=== PATIENT | female | born 1980 | race Caucasian/White ===

== ENCOUNTER → 2017-08-19 13:30 | Outpatient (CLI) | payer MEDICAID, SELFPAY ==
[2017-08-19 18:45] LABS: Chlamydia Trachomatis by PCR Negative (Negative); Neisserai gonorrhoeae by PCR Negative (Negative); Probe Check PASS; Sample Adequacy Control PASS; Specimen Processing Control PASS
[2017-08-23 15:37] LABS: HPV Reflexed? NOT INDICATED
== END ==
PROVIDERS: Visit Provider Obstetrics & Gynecology
DX: Z32.01 Encounter for pregnancy test, result positive (principal); Z11.3 Encounter for screening for infections with a predominantly sexual mode of transmission; Z12.4 Encounter for screening for malignant neoplasm of cervix
CPT/HCPCS: 87491; 87591; 88175; G0145

== ENCOUNTER → 2017-09-07 11:43 | Outpatient (CLI) | payer MEDICAID, SELFPAY ==
[2017-09-07 13:02] LABS: Color, Urine Yellow (Yellow); Glucose, Dipstick 1000 mg/dl (Normal); Ketone-Dipstick 5 mg/dl (Negative); Leukocyte Esterase-Dipstick Negative /ul (Negative); Nitrite-Dipstick Negative (Negative); Occult Blood-Urine Negative /ul (Negative); Protein-Dipstick Negative (Negative); Urine Bilirubin Dipstick Negative (Negative); Urine Clarity Clear (Clear); Urine Urobilinogen Normal (Normal)
[2017-09-07 13:13] LABS: Absolute Lymphocyte Count 1.62 X10^3/ul (0.83-4.51); Absolute Neutrophil Count 6.6 X10^3/uL (2.0-7.7); Basophil# 0.02 X10^3/uL; Basophil% 0.2 % (0-1); Eosinophil# 0.16 X10^3/uL; Eosinophils% 1.8 % (0-5); Hematocrit 36.7 % (37-47); Hemoglobin 11.8 g/dl (12.0-15.0); Lymphocyte # 1.62 X10^3/ul (4.0); Lymphocyte % 18.1 % (19-41); Mean Corp Hgb Conc 32.2 g/gl (32-36); Mean Corpuscular Hgb 26.8 pg (27.0-32.0); Mean Corpuscular Volume 83.2 fL (81-99); Mean Platelet Vol. 10.3 fl (6.2-12.0); Monocyte% 6.7 % (0-10); Neutrophil # 6.55 X10^3/uL (2.7-7.7); Neutrophil % 73.1 % (47-70); Platelet Count 305 K/mm3 (150-450); RBC Distribution Width CV 21.3 % (11.6-14.6); RBC Distribution Width SD 65.2 fl (35.1-43.9); Red Blood Count 4.41 M/mm3 (4.2-5.4)
[2017-09-07 13:15] LABS: Differential Indicated SCAN CRITERIA MET; POSITIVE COUNT NO; POSITIVE DIFFERENTIAL NO; POSITIVE MORPHOLOGY YES
[2017-09-07 13:16] LABS: Amphetamine Urine VISTA NEGATIVE (<1000 ng/mL); Barbiturate Urine VISTA NEGATIVE (< 200 ng/mL); Benzodiazepine Urine VISTA NEGATIVE (< 200 ng/mL); Cocaine Urine VISTA NEGATIVE (< 300 ng/mL); Ecstacy Urine VISTA NEGATIVE (< 500 ng/mL); Methadone Urine VISTA NEGATIVE (< 300 ng/mL); PCP Urine VISTA NEGATIVE (< 25 ng/mL); THC Urine VISTA NEGATIVE (< 50 ng/mL); Vista UDS pH Range 6
[2017-09-07 13:23] LABS: COTININE Drug Screen Positive (<200 ng/mL)
[2017-09-07 13:30] LABS: Thyroid Stim Hormone (TSH) 2.35 uIU/mL (0.358-3.74)
[2017-09-07 13:38] LABS: Anisocytosis 1+
[2017-09-07 14:28] LABS: HIV - WCH Non-Reactive (Nonreactive); Rubella IgG 59.7 IU/mL
[2017-09-08 12:55] LABS: HEPATITIS B SURFACE AG Negative (Negative); Hep C Antibodies <0.1 s/co ratio (0.0-0.9)
[2017-09-09 01:09] LABS: Prenatal RPR NONREACTIVE (NONREACTIVE)
== END ==
PROVIDERS: Visit Provider Obstetrics & Gynecology
DX: Z34.81 Encounter for supervision of other normal pregnancy, first trimester (principal)
CPT/HCPCS: 36415; 80307; 81002; 84443; 85025; 86703; 86762; 86803; 87340

== ENCOUNTER 2017-09-10 11:07 | Emergency (ER) | payer MEDICAID, SELFPAY ==
[2017-09-10 11:08] VITALS: BP 138/75; PULSE 99; RESP 16; TEMP 36.7; O2SAT 98; BMI 28.5
--- NOTE | 2017-09-10 11:43 | US_ITS ---
STUDY: FIRST TRIMESTER OBSTETRICAL ULTRASOUND REASON FOR EXAM: Female, 37 years old. Vaginal bleeding. LMP: 06/12/2017 TECHNIQUE: Transvaginal PRIOR ULTRASOUND: None. FINDINGS: There is visualization of a single gestational sac in a normal intrauterine position. The mean sac diameter (MSD) measures 6.3 cm. The gestational sac shape is within normal limits. There is no demonstrated yolk sac. There is visualization of the placenta. Fundal. There is visualization of a live embryo. The crown-rump length (CRL) measures 7 cm, indicating an estimated gestational age (EGA) of 13 weeks, 2 days. There is demonstrated cardiac activity with a heart rate of 157 bpm. The estimated gestation age (EGA) by LMP is 12 weeks, 6 days. The estimated date of delivery (CEZAR) by LMP is 03/19/2018. The estimated gestation age (EGA) by US is 13 weeks, 2 days. The estimated date of delivery (CEZAR) by US is 03/16/2018. The uterus measures 13.0 x 9.3 x 7.7 cm. There is no demonstrated uterine fibroid. The cervix is closed. Cervix measures 3.8 cm. Neither ovary is definitely seen. There is no fluid in the cul de sac. US/Transvaginal w/Preg US IMPRESSION: Single live intrauterine gestation with ultrasound EGA of 13 weeks 2 days. Electronically Signed: Scott Lyons MD at 13:15 EST , Service support ,
--- NOTE | 2017-09-10 11:58 | ED.VISSUMM ---
- ER Visit Summary Date of Service: 09/10/17 Chief Complaint: [] Vaginal bleeding weeks about 12 weeks History of Present Illness: The patient is a 37 F [] G 11 P7 AB 3 reports she has had vaginal bleeding on and off for 2 weeks she seen her [employer] BUSINESS ANALYST's multiple times, she last saw them 1 week ago when she was found to be 11 weeks had vaginal spotting she did not have placenta previa. She persists in having vaginal bleeding she had what she felt was more vaginal bleeding today and she came in. She also complains of cramps in her lumbar back. Normal urinary and bowel habits no fever no cough no chest pain no abdominal pain otherwise except for the cramps related to the bleeding Physical Examination: [] In no distress her vital signs are within normal range head neck chest unremarkable the abdomen is soft there is no rebound guarding organomegaly there is no pain palpation of her back midline flanks are negative for pain I discussed pelvic exam with her she declined that Test Results: [] Emergency Department Course and Treatment: [] This time given all the above screening labs are obtained pelvic ultrasound His labs are all unremarkable, her ultrasound shows single live 13 week IUP nothing else that was acute see those reports, her AB Rh was canceled by lab will confirm from her Rh status instructed her on the concept of threatened AB rest and follow-up with her [employer] BUSINESS ANALYST return for change in symptoms Treatment Plan: [] Disposition: [] Stable home Impression: [] 13 week live IUP threatened AB vaginal bleeding This note was generated with [employer] dictation software. It may contain incorrect words, spelling, and punctuation that were not noted in review of the chart prior to signing ED Disposition - Plan for ED Patient: Chief Complaint: Vag Bld, Preg Referrals: Care Physician,No Primary [Primary Care Provider] -
[2017-09-10 12:01] LABS: Bacteria 0 SEEN /hpf (None Seen); Mucous, Urine 0 SEEN /hpf (<or=2+); Red Blood Cells-Urine 0 SEEN /hpf (0-5)
[2017-09-10 12:08] LABS: Color, Urine Yellow (Yellow); Glucose, Dipstick Normal (Normal); Ketone-Dipstick Negative (Negative); Leukocyte Esterase-Dipstick 25 /ul (Negative); Nitrite-Dipstick Negative (Negative); Occult Blood-Urine 10 /ul (Negative); Protein-Dipstick Negative (Negative); Specific Gravity, Urine 1.015 (1.002-1.030); Urine Bilirubin Dipstick Negative (Negative); Urine Clarity Sl. Cloudy (Clear); Urine Urobilinogen Normal (Normal)
[2017-09-10] MEDS: 0.9% Normal Saline 1,000 ML 1000 ML IV (12:11)
[2017-09-10 12:14] LABS: Amorphous Sediment 2+; Squamous Epithelial Cells - UA 0-5 SEEN /hpf (5-10); White Blood Cells 0-5 SEEN /hpf (0-5)
[2017-09-10 12:19] LABS: Absolute Lymphocyte Count 1.82 X10^3/ul (0.83-4.51); Absolute Neutrophil Count 7.5 X10^3/uL (2.0-7.7); Basophil# 0.03 X10^3/uL; Basophil% 0.3 % (0-1); Eosinophil# 0.15 X10^3/uL; Eosinophils% 1.5 % (0-5); Hematocrit 37.1 % (37-47); Hemoglobin 12.4 g/dl (12.0-15.0); Lymphocyte # 1.82 X10^3/ul (4.0); Lymphocyte % 17.8 % (19-41); Mean Corp Hgb Conc 33.4 g/gl (32-36); Mean Corpuscular Hgb 27.9 pg (27.0-32.0); Mean Corpuscular Volume 83.4 fL (81-99); Mean Platelet Vol. 10.1 fl (6.2-12.0); Monocyte# 0.67 X10^3/uL; Monocyte% 6.6 % (0-10); Neutrophil # 7.51 X10^3/uL (2.7-7.7); Neutrophil % 73.6 % (47-70); Platelet Count 300 K/mm3 (150-450); RBC Distribution Width CV 21.4 % (11.6-14.6); Red Blood Count 4.45 M/mm3 (4.2-5.4); White Blood Count 10.2 K/mm3 (4.4-11.0)
[2017-09-10 12:31] LABS: POSITIVE COUNT NO; POSITIVE DIFFERENTIAL NO
[2017-09-10 12:32] LABS: Anisocytosis 2+; Differential Comment SCANNED; Differential Indicated SCAN CRITERIA MET; Macrocytosis 1+; Microcytosis 1+; POSITIVE MORPHOLOGY YES
[2017-09-10 13:22] LABS: hCG Titer Quant., Serum 58283 mIU/mL (<9 non-preg)
--- NOTE | 2017-09-10 13:46 | ED.DEP ---
ED Disposition - Plan for ED Patient: Chief Complaint: Vag Bld, Preg Instructions: ED Miscarriage Poss Referrals: Care Physician,No Primary [Primary Care Provider] - Additional Instructions: Up with your PERSONAL CARE SERVICE PROVIDER a few days return for change in symptoms
[2017-09-10 14:09] VITALS: BP 130/75; PULSE 72; RESP 16; O2SAT 98
== END 2017-09-10 14:09 | disposition home or self-care (01) ==
PROVIDERS: Emergency Provider Emergency Medicine
DX: O20.0 Threatened abortion (principal); Z3A.13 13 weeks gestation of pregnancy
CPT/HCPCS: 76817; 81001; 84702; 85025; 99285; J7030; A4216

== ENCOUNTER → 2017-10-07 11:23 | Outpatient (CLI) | payer MEDICAID, SELFPAY | PROVIDERS: Visit Provider Obstetrics & Gynecology | DX: Z34.82 Encounter for supervision of other normal pregnancy, second trimester (principal) | CPT/HCPCS: 36415 ==

== ENCOUNTER → 2017-12-29 10:47 | Outpatient (CLI) | payer MEDICAID, SELFPAY ==
[2017-12-29 12:22] LABS: Hematocrit 32.6 % (37-47); Hemoglobin 10.3 g/dl (12.0-15.0); Mean Corp Hgb Conc 31.6 g/gl (32-36); Mean Corpuscular Volume 85.6 fL (81-99); Platelet Count 326 K/mm3 (150-450); RBC Distribution Width CV 15.7 % (11.6-14.6); RBC Distribution Width SD 48.8 fl (35.1-43.9); Red Blood Count 3.81 M/mm3 (4.2-5.4); White Blood Count 9.4 K/mm3 (4.4-11.0)
[2017-12-29 12:23] LABS: Scan Indicated on CBC? Y/N NO
[2017-12-29 12:37] LABS: Glucose Challenge Gest 1H 50g 154 mg/dL (70-140)
== END ==
PROVIDERS: Visit Provider Obstetrics & Gynecology
DX: Z34.83 Encounter for supervision of other normal pregnancy, third trimester (principal)
CPT/HCPCS: 36415; 82950; 85027

== ENCOUNTER 2018-02-24 22:35 | Inpatient (IN) | payer MEDICAID, SELFPAY ==
[2018-02-24 22:02] VITALS: BMI 33.2
[2018-02-24 22:35] LABS: ROM Internal Control Test YES-OK TO RESULT pt. (Internal QC); ROM Patient Test POSITIVE (Negative)
[2018-02-24] MEDS: Lactated Ringers 1,000 ML 50 ML IV (23:00)
[2018-02-24 23:08] LABS: Group B Strep DNA By PCR Negative (Negative); Internal Control PASS; Probe Check PASS; Specimen Processing Control PASS
[2018-02-24] MEDS: Betamethasone/Betamethasone 30 MG/5 ML Vial 12 MG IM (23:10)
[2018-02-24 23:31] LABS: Hematocrit 29.4 % (37-47); Hemoglobin 9.3 g/dl (12.0-15.0); Mean Corp Hgb Conc 31.6 g/gl (32-36); Mean Corpuscular Hgb 25.1 pg (27.0-32.0); Mean Corpuscular Volume 79.5 fL (81-99); Mean Platelet Vol. 9.6 fl (6.2-12.0); Platelet Count 267 K/mm3 (150-450); RBC Distribution Width CV 16.8 % (11.6-14.6); White Blood Count 10.7 K/mm3 (4.4-11.0)
[2018-02-24 23:37] LABS: Scan Indicated on CBC? Y/N NO
[2018-02-25] MEDS: BENZOCAINE/MENTHOL 1 LOZENGE MUCOUS MEM (01:31)
[2018-02-25] MEDS: Oxytocin 30 units/NS 500 ml 30 UNITS/500 ML IV.SOLN 334 UNITS IV (07:30)
[2018-02-25] MEDS: Oxytocin 30 units/NS 500 ml 30 UNITS/500 ML IV.SOLN 167 UNITS IV (08:00)
[2018-02-25] MEDS: Acetaminophen 325 MG Tablet PO (08:26)
--- NOTE | 2018-02-25 09:08 | PCM.OB.VAG ---
Vaginal Delivery Maternal Presentation: Active Labor, Spontaneous Rupture of Membranes Amniotic Membrane Rupture Type: Spontaneous at home Amniotic Fluid Description: Clear Final CEZAR: 03/19/18 Final CEZAR Source: US <20 weeks Gestational age: 36 Weeks and 6 Days Date of Procedure: 02/25/18 Pre-Operative Diagnosis: premature rupture of membranes Post-Operative Diagnosis: premature rupture membranes Surgery/ Procedure Performed: Spontaneous Vaginal Delivery Type of Anesthesia: None Description of Procedure: Spontaneous vaginal delivery of a viable female infant with Apgars of 8/9 from an occiput anterior presentation with clear amniotic fluid and normal three-vessel placenta. No lacerations or episiotomy. Sponge counts okay. Delivery physician: Elijah Sheridan MD. Presentation: Vertex Placental Delivery Description: Spontaneous Placenta Disposition: [facility] Cord Vessel Description: 3 Vessels Cord Gases drawn per routine: ABG Cord Entanglement: None Estimated Blood Loss: 250 cc A gender: Female (1 minute): 8 (5 minute): 9 Episiotomy Description: None Laceration: None Medications given after delivery: IV Pitocin Complications: None
--- NOTE | 2018-02-25 09:11 | PCM.DCVAG ---
Discharge Diet: No Restrictions Discharge Activity: May Shower, May Take a Tub Bath May resume sexual activity in: 4-6 weeks Additional Activity Instructions:: Nothing in the vagina for 4-6 weeks. You may return to work/school in 6 weeks. Call your doctor if you observe: Fever of 101 or Higher, Inability to urinate, Inability to have a bowel movement, Using more than one pad per hour Additional Instructions: If you experience any of the following, contact your healthcare provider. Bleeding that soaks a pad every hour for 2 hours Unrelieved incision or abdominal pain Swelling, redness, discharge or bleeding from your incision or episiotomy site Your incision begins to separate Problems urinating (including inability to urinate or burning while urinating). Visual changes Severe headache Flu-like symptoms Pain or redness in one of both of your breasts Pain, warmth, tenderness or swelling in your legs, especially the calf area Frequent nausea and vomiting Symptoms of depression or anxiety If you experience any of the following, call 911 or go to the nearest Emergency Room. Chest pain Problems breathing Seizure activity Partial or complete paralysis of a body part, slurred speech, weakness or drooping of the face, or a sudden inability to walk or hold your balance Allergies/Adverse Reactions: Allergies azithromycin [From Zithromax] Allergy (Verified 02/24/18 22:05) Rash Medications to take at Discharge Vits [Prenatabs FA ] 1 tablet PO DAILY #30 tablet 01/11/14 Please Follow Up With: Elijah Sheridan MD - [phone] When: Call to make an appointment with your doctor in 6 weeks. Primary Care Physician: Care Physician,No Primary [Primary Care Provider] - Test Results: Test results from this visit will be discussed in further detail at your follow-up appointment, if applicable.
[2018-02-25 12:00] VITALS: BP 120/70; PULSE 97; RESP 20; TEMP 36.4
[2018-02-25 16:00] VITALS: BP 131/72; PULSE 86; RESP 18; TEMP 36.6
[2018-02-25 19:50] VITALS: BP 120/62; PULSE 87; RESP 16; TEMP 36.8
[2018-02-26 00:30] VITALS: BP 132/79; PULSE 75; RESP 16; TEMP 36.6
[2018-02-26 04:00] VITALS: BP 133/76; PULSE 70; RESP 16; TEMP 36.6
[2018-02-26 07:50] VITALS: BP 129/79; PULSE 77; RESP 18; TEMP 36.6
[2018-02-26] MEDS: Senna/Docusate Sodium 1 Tablet PO (10:10)
--- NOTE | 2018-02-26 11:08 | PCM.PN.OB ---
Subjective: Patient without complaints. Breast-feeding going well. Minimal vaginal bleeding. Heading outside to smoke. - Physical Exam Vital Signs Temp Pulse Resp BP 97.8 F 77 18 129/79 H 02/26/18 07:50 02/26/18 07:50 02/26/18 07:50 02/26/18 07:50 Oxygen Delivery Method Room Air Weight: 181 lb 9.6 oz Body Mass Index (BMI) 33.2 Intake and Output for Last 24 Hours 02/24/18 02/25/18 02/26/18 23:59 23:59 23:59 Output Total 600 / 600 Balance -600 / -600 Medical Necessity - Tobacco Use Smoking Status: Heavy Smoker (>10/day) Assessment/Plan Doing well day #1. Continuing present care. Considering going home this evening if baby is able to go.
[2018-02-26 14:00] VITALS: BP 116/71; PULSE 85; RESP 18; TEMP 36.9
[2018-02-26 19:40] VITALS: BP 126/61; PULSE 89; RESP 18; TEMP 36.7; O2SAT 96
[2018-02-27 03:00] VITALS: BP 115/64; PULSE 81; RESP 18; TEMP 36.4; O2SAT 96
--- NOTE | 2018-02-27 07:42 | PCM.PN.OB ---
Subjective: Patient without complaints. Doing well. Baby still under bili lights but will probably go home later today. - Physical Exam Vital Signs Temp Pulse Resp BP Pulse Ox 97.6 F L 81 18 115/64 96 02/27/18 03:00 02/27/18 03:00 02/27/18 03:00 02/27/18 03:00 02/27/18 03:00 Oxygen Delivery Method Room Air Weight: 181 lb 9.6 oz Body Mass Index (BMI) 33.2 Intake and Output for Last 24 Hours 02/25/18 02/26/18 02/27/18 23:59 23:59 23:59 Output Total 600 / 600 Balance -600 / -600 Microbiology Past 72 Hours 02/24/18 Unknown Group B Streptococcus Culture - Preliminary Genital vaginal Group B Beta Streptococcus is not isolated. Medical Necessity - Tobacco Use Smoking Status: Heavy Smoker (>10/day) Assessment/Plan Doing well day #2. Will release to home or to hotel later today. Routine instructions given.
[2018-02-27 08:00] VITALS: BP 132/79; PULSE 72; RESP 18; TEMP 36.6; O2SAT 97
[2018-02-27 14:13] VITALS: BP 137/79; PULSE 72; RESP 16; TEMP 36.6; O2SAT 97
== END 2018-02-27 14:30 | disposition home or self-care (01) | DRG 373 ==
LOC: WPOUT 22:42
PROVIDERS: Admitting Provider Obstetrics & Gynecology; Visit Provider Obstetrics & Gynecology
DX: O42.913 Preterm premature rupture of membranes, unspecified as to length of time between rupture and onset of labor, third trimester (principal); Z3A.36 36 weeks gestation of pregnancy; Z37.0 Single live birth; F17.200 Nicotine dependence, unspecified, uncomplicated; O99.334 Smoking (tobacco) complicating childbirth
CPT/HCPCS: 59025; 59050; 84112; 85027; 86850; 86900; 87081; 87653; 99218; J7120; G0378; J0702

== ENCOUNTER 2020-04-29 23:50 | Emergency (ER) | payer MEDICAID, SELFPAY ==
[2020-04-29 23:51] VITALS: BP 126/77; PULSE 86; RESP 18; TEMP 36.3; O2SAT 98; BMI 32.1
--- NOTE | 2020-04-29 23:59 | US_ITS ---
STUDY: FIRST TRIMESTER OBSTETRICAL ULTRASOUND REASON FOR EXAM: Female, 39 years old spotting, right lower quadrant pain. TECHNIQUE: Transvaginal TECHNICAL QUALITY: Adequate. PRIOR ULTRASOUND: None. FINDINGS: There is visualization of a single gestational sac in a normal intrauterine position. The mean sac diameter (MSD) measures 2.0 cm, indicating an estimated gestational age (EGA) of 6 weeks, 6 days. The gestational sac shape is within normal limits. There is a visualized yolk sac. The yolk sac measures 4 mm. The placenta is non-visualized. There is visualization of a live embryo. The crown-rump length (CRL) measures 1.3 cm, indicating an estimated gestational age (EGA) of 7 weeks, 4 days. There is demonstrated cardiac activity with a heart rate of 150 bpm. The estimated gestation age (EGA) by LMP is 8 weeks, 5 days. The estimated date of delivery (CEZAR) by LMP is 12/05/2020 The estimated gestation age (EGA) by US is 7 weeks, 1 days. The estimated date of delivery (CEZAR) by US is 12/16/2020. The uterus measures 9.4 x 7.0 x 4.8 cm. There is no demonstrated uterine fibroid. The cervix is closed. The right ovary measures 3.5 x 3.1 x 1.7 cm. There is a minimally complex cyst measuring 2.0 x 2.2 x 1.7 cm There is no visualized right adnexal mass or complex lesion. Left ovary not visualized. There is no fluid in the cul de sac. US/Transvaginal w/Preg US IMPRESSION: Single living intrauterine gestation with a composite estimated gestational age by ultrasound of 7 weeks 1 day. Estimated date of delivery December 16, 2020. Probable right corpus luteum cyst. Appendix not evaluated. Left ovary not visualized. Electronically Signed: Milton Lindsey MD at 1:56 EDT , Service support ,
--- NOTE | 2020-04-30 | ED.VIS.GEN ---
History of Present Illness Chief Complaint: Vag Bld, Preg Informant: Patient Narrative: Already 39-year-old female G 12 with 1 ectopic currently estimated at 8 weeks gestation. She has not had a visit with a automotive tire tester yet. She states he is trying to get established with [facility]. She states over the last 2 days she has had some vaginal spotting. Now she has some right lower pelvic pain and she is concerned for another ectopic . She has not had fever, chills, nausea, vomiting. Past Medical History - Allergies and Home Meds Allergies/Adverse Reactions: Allergies azithromycin [From Zithromax] Allergy (Verified 02/24/18 22:05) Rash Primary Care Physician: Care Physician,No Primary [Primary Care Provider] - Prior records reviewed: Yes Past Medical History: - - Ectopic Lives: Spouse/ Significant Other Smoking Status: Heavy Smoker (>10/day) Alcohol: None Drugs: None Review of Systems General: Denies: Chills, Fever, Sweats Eyes: Denies: Visual changes - bilaterally, Diplopia ENT: Denies: Rhinorrhea, Sore throat Cardiovascular: Denies: Chest pain, Palpitations Respiratory: Denies: Dyspnea, Cough, Dyspnea on exertion Gastrointestinal: Reports: Abdominal pain. Denies: Nausea, Vomiting Genitourinary: Reports: - - Vaginal spotting. Denies: Dysuria, Hematuria Musculoskeletal: Denies: Myalgias, Arthralgias Skin: Denies: Rash, Abscess Neurological: Denies: Headache, Weakness Physical Exam Vital Signs/Narrative: Vital Signs Temp Pulse Resp BP Pulse Ox 04/29/20 23:51 97.4 F L 86 18 126/77 H 98 Diagnostic/Tx/Re-eval Clinical Impression(s) from Imaging Studies Obstetrics Ultrasound 04/29/20 23:59 IMPRESSION: Single living intrauterine gestation with a composite estimated gestational age by ultrasound of 7 weeks 1 day. Estimated date of delivery December 16, 2020. Probable right corpus luteum cyst. Appendix not evaluated. Left ovary not visualized. Electronically Signed: Milton Lindsey MD at 1:56 EDT , Service support , Laboratory Data 04/29/20 04/29/20 04/29/20 00:35 00:35 00:35 WBC 9.1 RBC 4.20 Hgb 11.1 L Hct 35.3 L MCV 84.0 MCH 26.4 L MCHC 31.4 L RDW Std Deviation 53.8 H RDW Coeff of Jaylene 17.5 H Plt Count 298 MPV 10.0 Immature Gran % (Auto) 0.400 Neut % (Auto) 61.2 Lymph % (Auto) 29.1 [place] % (Auto) 6.5 Eos % (Auto) 2.5 Baso % (Auto) 0.3 Absolute Neuts (auto) 5.5 Absolute Lymphs (auto) 2.63 Nucleated RBC % 0 HCG, Quant 01519 H Urine Color Urine Clarity Urine pH Ur Specific [place] Urine Protein Urine Glucose (UA) Urine Ketones Urine Occult Blood Urine Nitrite Urine Bilirubin Urine Urobilinogen Ur Leukocyte Esterase Urine RBC Urine WBC Ur Squamous Epith Cells Urine Bacteria Urine Mucus Blood Type A POSITIVE 04/30/20 00:08 WBC RBC Hgb Hct MCV MCH MCHC RDW Std Deviation RDW Coeff of Jaylene Plt Count MPV Immature Gran % (Auto) Neut % (Auto) Lymph % (Auto) [place] % (Auto) Eos % (Auto) Baso % (Auto) Absolute Neuts (auto) Absolute Lymphs (auto) Nucleated RBC % HCG, Quant Urine Color Yellow Urine Clarity Clear Urine pH 6.0 Ur Specific [place] 1.020 Urine Protein 15 H Urine Glucose (UA) Normal Urine Ketones 5 H Urine Occult Blood 10 H Urine Nitrite Negative Urine Bilirubin Negative Urine Urobilinogen Normal Ur Leukocyte Esterase 25 H Urine RBC 0-5 SEEN Urine WBC 0-5 SEEN Ur Squamous Epith Cells 0-5 SEEN Urine Bacteria 0 SEEN Urine Mucus 0 SEEN Blood Type - Medical Decision Making Patient was seen and evaluated on arrival for right-sided pelvic pain and vaginal spotting. Patient was concerned for ectopic as she has had this in the past. On physical exam she is tender in the right pelvic region. She does have some right adnexal tenderness. The cervical os is closed. There is no bleeding visualized. Ultrasound shows single living intrauterine gestation with a composite estimated gestational age by ultrasound of 7 weeks 1 day. Estimated date of delivery December 16, 2020 and probable right corpus luteum cyst. Is likely the source of her pain. There is no ectopic identified. hCG 49,640. Patient's blood type is a positive so she did not need RhoGam. Patient states she is going to follow-up with [facility]. Impression: 1. First trimester 2. Threatened miscarriage 3. Right ovarian cyst ED Disposition - Plan for ED Patient: Disposition: Home or Assisted Living Instructions: ED Possible Miscarriage Threatened Referrals: Care Physician,No Primary [Primary Care Provider] -
[2020-04-30 00:29] LABS: Bacteria 0 SEEN /hpf (None Seen); Color, Urine Yellow (Yellow); Glucose, Dipstick Normal (Normal); Ketone-Dipstick 5 mg/dl (Negative); Leukocyte Esterase-Dipstick 25 /ul (Negative); Mucous, Urine 0 SEEN /hpf (<or=2+); Nitrite-Dipstick Negative (Negative); Occult Blood-Urine 10 /ul (Negative); Protein-Dipstick 15 mg/dl (Negative); Urine Bilirubin Dipstick Negative (Negative); Urine Clarity Clear (Clear); Urine Urobilinogen Normal (Normal)
[2020-04-30 00:41] LABS: Absolute Lymphocyte Count 2.63 X10^3/uL (0.83-4.51); Absolute Neutrophil Count 5.5 X10^3/uL (2.0-7.7); Basophil# 0.03 X10^3/uL; Basophil% 0.3 % (0-1); Eosinophil# 0.23 X10^3/uL; Eosinophils% 2.5 % (0-5); Hematocrit 35.3 % (37-47); Hemoglobin 11.1 g/dL (12.0-15.0); Lymphocyte # 2.63 X10^3/ul (4.0); Lymphocyte % 29.1 % (19-41); Mean Corp Hgb Conc 31.4 g/dL (32-36); Mean Corpuscular Hgb 26.4 pg (27.0-32.0); Monocyte# 0.59 X10^3/uL; Monocyte% 6.5 % (0-10); NRBC Flagged by Analyzer 0 % (0-5); Neutrophil # 5.53 X10^3/uL (2.7-7.7); Neutrophil % 61.2 % (47-70); Platelet Count 298 K/mm3 (150-450); RBC Distribution Width CV 17.5 % (11.6-14.6); RBC Distribution Width SD 53.8 fl (35.1-43.9); White Blood Count 9.1 K/mm3 (4.4-11.0)
[2020-04-30 00:53] LABS: Red Blood Cells-Urine 0-5 SEEN /hpf (0-5); Squamous Epithelial Cells - UA 0-5 SEEN /hpf (5-10); White Blood Cells 0-5 SEEN /hpf (0-5)
== END 2020-04-30 02:19 | disposition home or self-care (01) ==
PROVIDERS: Emergency Provider Student in an Organized Health Care Education/Training Program
DX: O20.0 Threatened abortion (principal); O34.81 Maternal care for other abnormalities of pelvic organs, first trimester; N83.201 Unspecified ovarian cyst, right side; O09.521 Supervision of elderly multigravida, first trimester; Z3A.08 8 weeks gestation of pregnancy
CPT/HCPCS: 76817; 81001; 84702; 85025; 86900; 86901; 99282; A4216

== ENCOUNTER → 2020-05-09 10:49 | Outpatient (CLI) | payer MEDICAID, SELFPAY ==
[2020-04-29 23:51] VITALS: BMI 32.1
[2020-05-09 14:41] LABS: Absolute Lymphocyte Count 1.49 X10^3/uL (0.83-4.51); Absolute Neutrophil Count 5.2 X10^3/uL (2.0-7.7); Basophil# 0.05 X10^3/uL; Basophil% 0.7 % (0-1); Eosinophil# 0.12 X10^3/uL; Eosinophils% 1.6 % (0-5); Hematocrit 38.6 % (37-47); Hemoglobin 11.9 g/dL (12.0-15.0); Lymphocyte # 1.49 X10^3/ul (4.0); Lymphocyte % 20.3 % (19-41); Mean Corp Hgb Conc 30.8 g/dL (32-36); Mean Corpuscular Hgb 26.2 pg (27.0-32.0); Mean Corpuscular Volume 84.8 fL (81-99); Mean Platelet Vol. 11.1 fl (6.2-12.0); Monocyte# 0.48 X10^3/uL; Monocyte% 6.5 % (0-10); NRBC Flagged by Analyzer 0 % (0-5); Neutrophil # 5.18 X10^3/uL (2.7-7.7); Neutrophil % 70.6 % (47-70); Platelet Count 349 K/mm3 (150-450); RBC Distribution Width CV 17.9 % (11.6-14.6); RBC Distribution Width SD 55.1 fl (35.1-43.9); Red Blood Count 4.55 M/mm3 (4.2-5.4); White Blood Count 7.3 K/mm3 (4.4-11.0)
[2020-05-09 15:43] LABS: HIV - WCH Non-Reactive (Nonreactive); Hepatitis B Surface Antigen Non-Reactive (Nonreactive); Hepatitis C Antibody Non-Reactive (Nonreactive); Rubella IgG Reactive (Nonreactive)
[2020-05-13 03:07] LABS: Chlamydia By Nucleic Acid AMP Negative (Negative)
[2020-05-13 06:29] LABS: Gonococcus By Nucleic Acid AMP Negative (Negative)
[2020-05-15 01:20] LABS: Prenatal RPR NONREACTIVE (NONREACTIVE)
[2020-05-15 16:04] LABS: CF, Screen Comment: (.)
== END ==
PROVIDERS: Visit Provider Student in an Organized Health Care Education/Training Program
DX: Z34.81 Encounter for supervision of other normal pregnancy, first trimester (principal); Z11.3 Encounter for screening for infections with a predominantly sexual mode of transmission
CPT/HCPCS: 36415; 80307; 81002; 81220; 85025; 86703; 86762; 86803; 87086; 87340; 87491; 87591

== ENCOUNTER 2020-05-25 16:14 | Emergency (ER) | payer MEDICAID, SELFPAY ==
[2020-05-25 16:16] VITALS: BP 134/80; PULSE 91; RESP 17; TEMP 36.1; O2SAT 100; BMI 32.1
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
[2020-05-25 16:54] LABS: Mucous, Urine 0 SEEN /hpf (<or=2+); Red Blood Cells-Urine 0 SEEN /hpf (0-5); White Blood Cells 0 SEEN /hpf (0-5)
[2020-05-25 17:00] LABS: Color, Urine Yellow (Yellow); Glucose, Dipstick Normal (Normal); Ketone-Dipstick Negative (Negative); Leukocyte Esterase-Dipstick 25 /ul (Negative); Nitrite-Dipstick Negative (Negative); Occult Blood-Urine Negative /ul (Negative); Protein-Dipstick 15 mg/dl (Negative); Urine Bilirubin Dipstick Negative (Negative); Urine Clarity Clear (Clear); Urine Urobilinogen Normal (Normal); Urine pH 6.5 (5.0 - 8.0)
[2020-05-25 17:27] LABS: Squamous Epithelial Cells - UA 0-5 SEEN /hpf (5-10)
[2020-05-25 17:28] LABS: Bacteria RARE /hpf (None Seen)
[2020-05-25 17:34] LABS: Absolute Lymphocyte Count 2.09 X10^3/uL (0.83-4.51); Absolute Neutrophil Count 6.9 X10^3/uL (2.0-7.7); Basophil# 0.04 X10^3/uL; Basophil% 0.4 % (0-1); Eosinophil# 0.13 X10^3/uL; Eosinophils% 1.3 % (0-5); Hemoglobin 12.4 g/dL (12.0-15.0); Lymphocyte # 2.09 X10^3/ul (4.0); Lymphocyte % 21.2 % (19-41); Mean Corpuscular Hgb 26.1 pg (27.0-32.0); Mean Corpuscular Volume 84.2 fL (81-99); Mean Platelet Vol. 10.9 fl (6.2-12.0); Monocyte# 0.67 X10^3/uL; Monocyte% 6.8 % (0-10); NRBC Flagged by Analyzer 0 % (0-5); Neutrophil # 6.89 X10^3/uL (2.7-7.7); Neutrophil % 69.8 % (47-70); Platelet Count 338 K/mm3 (150-450); RBC Distribution Width CV 17.3 % (11.6-14.6); RBC Distribution Width SD 53.2 fl (35.1-43.9); Red Blood Count 4.75 M/mm3 (4.2-5.4); White Blood Count 9.9 K/mm3 (4.4-11.0)
[2020-05-25 18:07] LABS: hCG Titer Quant., Serum 44233 mIU/mL (1-3)
[2020-05-25 18:34] VITALS: RESP 18
[2020-05-25 18:54] VITALS: BP 106/73; PULSE 76; RESP 15; O2SAT 100
[2020-05-25 19:05] VITALS: RESP 18
== END 2020-05-25 19:06 | disposition home or self-care (01) ==
PROVIDERS: Emergency Provider Emergency Medicine
DX: O20.0 Threatened abortion (principal); R10.9 Unspecified abdominal pain; R07.9 Chest pain, unspecified; M54.9 Dorsalgia, unspecified; M54.2 Cervicalgia; V89.2XXA Person injured in unspecified motor-vehicle accident, traffic, initial encounter; Y93.9 Activity, unspecified; Y92.9 Unspecified place or not applicable; Y99.9 Unspecified external cause status; O09.511 Supervision of elderly primigravida, first trimester; O99.211 Obesity complicating pregnancy, first trimester; E66.9 Obesity, unspecified; O99.331 Smoking (tobacco) complicating pregnancy, first trimester; Z3A.11 11 weeks gestation of pregnancy
CPT/HCPCS: 76801; 81001; 84702; 85025; 99283; A4216

== ENCOUNTER → 2020-09-11 15:56 | Outpatient (CLI) | payer MEDICAID, SELFPAY ==
[2020-09-11 16:57] LABS: Hematocrit 34.4 % (37-47); Mean Corpuscular Volume 84.5 fL (81-99); Mean Platelet Vol. 10.4 fl (6.2-12.0); Platelet Count 334 K/mm3 (150-450); RBC Distribution Width CV 17.1 % (11.6-14.6); RBC Distribution Width SD 52.9 fl (35.1-43.9); Red Blood Count 4.07 M/mm3 (4.2-5.4); White Blood Count 12.2 K/mm3 (4.4-11.0)
[2020-09-11 17:45] LABS: Glucose Challenge Gest 1H 50g 114 mg/dL (70-140)
== END ==
PROVIDERS: Visit Provider Student in an Organized Health Care Education/Training Program
DX: Z34.82 Encounter for supervision of other normal pregnancy, second trimester (principal)
CPT/HCPCS: 36415; 82950; 85027

== ENCOUNTER → 2020-11-20 13:03 | Outpatient (CLI) | payer MEDICAID, SELFPAY | PROVIDERS: Visit Provider Obstetrics & Gynecology | DX: Z36.85 Encounter for antenatal screening for Streptococcus B (principal) | CPT/HCPCS: 87081 ==

== ENCOUNTER 2020-11-22 01:35 | Inpatient (IN) | payer MEDICAID, SELFPAY ==
[2020-11-22] VITALS (34 sets, daily range): BP systolic 69–154; BP diastolic 39–93; PULSE 77–139; RESP 14–25; TEMP 36–37.1; O2SAT 94–100; BMI 35.1
[2020-11-22 01:32] LABS: ROM Internal Control Test YES-OK TO RESULT pt. (Internal QC)
[2020-11-22 01:34] LABS: ROM Patient Test POSITIVE (Negative)
[2020-11-22] MEDS: Lactated Ringers 1,000 ML 999 ML IV (01:45)
[2020-11-22 02:00] LABS: Absolute Lymphocyte Count 2.08 X10^3/uL (0.83-4.51); Absolute Neutrophil Count 9.3 X10^3/uL (2.0-7.7); Basophil# 0.04 X10^3/uL; Basophil% 0.3 % (0-1); Eosinophil# 0.09 X10^3/uL; Eosinophils% 0.7 % (0-5); Hemoglobin 10.9 g/dL (12.0-15.0); Lymphocyte # 2.08 X10^3/ul (0.83-4.51); Lymphocyte % 16.6 % (19-41); Mean Corp Hgb Conc 31.1 g/dL (32-36); Mean Corpuscular Hgb 25.1 pg (27.0-32.0); Mean Corpuscular Volume 80.6 fL (81-99); Mean Platelet Vol. 10.6 fl (6.2-12.0); Monocyte# 0.89 X10^3/uL; Monocyte% 7.1 % (0-10); NRBC Flagged by Analyzer 0 % (0-5); Neutrophil # 9.32 X10^3/uL (2.7-7.7); Neutrophil % 74.4 % (47-70); Platelet Count 287 K/mm3 (150-450); RBC Distribution Width CV 17.2 % (11.6-14.6); RBC Distribution Width SD 49.3 fl (35.1-43.9); Red Blood Count 4.34 M/mm3 (4.2-5.4); White Blood Count 12.5 K/mm3 (4.4-11.0)
--- NOTE | 2020-11-22 02:12 | HP.PCM.OB_ITS ---
HPI - General General Date of Admission: 11/22/20 HPI Narrative ESTHER DOWD, is a 40 F who presents with leaking of clear fluid. + FM. Known breech Maternal Data Information Final CEZAR: 12/13/20 Final CEZAR Source: US <20 weeks [facility] Medical History (Updated 11/22/20 @ 02:[address] Aleena Koch MD) Gestational HTN Home Medications Prenatabs FA 1 tab PO DAILY #30 tablet 01/11/14 [Rx Last Taken 11/21/20] aspirin 81 mg PO DAILY 11/22/20 [History Last Taken 11/21/20] Allergy/AdvReac Type Severity Reaction Status Date / Time azithromycin [From Zithromax] Allergy Rash Verified 11/22/20 02:16 Family History (Updated 11/22/20 @ 02:[address] Aleena Koch MD) Mother Diabetes Hypertension Father COPD (chronic obstructive pulmonary disease) Surgical History (Updated 11/22/20 @ 02:[address] Aleena Koch MD) H/O laparoscopy History of dilation and curettage History of tonsillectomy Social History Smoking Status: Current every day smoker History 12 Elective abortions 0 Hx Para 8 Spontaneous abortions 2 Hx # Term Pregnancies 7 Ectopic pregnancies 1 Hx # Pregnancies 1 Multiple births 0 # of living children 8 NST FHR Rate Baby A Baseline: 125 Variability:: Moderate Accelerations:: 10 x 10 Decelerations:: None NST Reactive:: Yes FHR Category:: Category I Uterine Activity:: 0/10 Vital Signs Vital Signs Vital Signs: 11/22/20 00:56 11/22/20 01:01 11/22/20 01:03 Temperature 97.9 F Pulse Rate 93 95 Blood Pressure 143/93 H BP Systolic 143 BP Diastolic 93 Pulse Ox 98 98 11/22/20 01:09 Temperature Pulse Rate 85 Blood Pressure 140/87 H BP Systolic 140 BP Diastolic 87 Pulse Ox Physical Exam Const alert, oriented x3 and no apparent distress HEENT normocephalic Resp normal respiratory effort, normal air movement and clear to auscultation bilaterally Cardio regular rate, regular rhythm, S1 normal heart sound and S2 normal heart sound GI soft to palpation, non-tender and non-distended Inspection: gravid Manual OB Exam: dilated 5cm, effaced 80, station -3 and other per RN exam Extremity no calf tenderness Labs Labs Labs: Blood Type A POSITIVE Antibody Screen NEGATIVE Hct 35.0 % (37-47) L Hgb 10.9 g/dL (12.0-15.0) L Obstetrics US Rubella IgG Antibody Reactive (Nonreactive) Hep Bs Antigen Non-Reactive (Nonreactive) Neisseria gonorrhoeae DNA (ALBERTO) Negative (Negative) HIV 1&2 Antibody Non-Reactive (Nonreactive) C.trachomatis DNA (PCR) Negative (Negative) Glucose 1 Hr 50 gm 114 mg/dL (70-140) Rhogam given: No Miscellaneous Test ACOG ANTEPARTUM RECORD - HISTORY AND PHYSICAL (11/22/2020) Name: ESTHER DOWD History of this : This is a 40 year old [id number] presents at 37 wks + 0 days gestation. OB Physician: Avril Germain [place]'s Physician: [facility] Froylan Fernandez ...................................................................... : 1980 Age: 40 Address: [address] [place] [address] Phone: ([phone] Insurance Carrier: [facility] [employer] [facility] [id number] Emergency Contact: ROD LEONARD [phone] ...................................................................... Final CEZAR: 12/13/20 By Ultrasound: 8 weeks 6 days PARITY:[id number] (G-Total Pregnancies P-Fullterm,Premature,Induced AB,Spont AB, Ectopics, Multiple,Living) CEZAR CONFIRMATION: By LMP: 02/29/20 Final CEZAR: 12/13/20 OB PROBLEM LIST: Allergic to AZYTHROMYCIN! AMA - MaterniT and carrier screens drawn All negative Brother with developmental delays Grand multip H/O rapid labors Last delivery (2018), SROM at 36 weeks History of Pre-Eclampsia No epidural Xyxkyj-mi-gkj has DiGeorge Syndrome Smokes 1/2 ppd, ATQ ALLERGIES: azithromycin Hives Azithromycin Hives and/or rash MEDICATIONS: Anusol-HC 25 mg rectal suppository two times daily aspirin 81 mg tablet,delayed release one daily starting at 12 weeks DHA 200 mg capsule One capsule by mouth daily SOCIAL HISTORY: Smoking - 1/2 pack/day--advised to quit Alcohol Use - denies drinking Diet - moderate, balanced diet and caffeine > 2 drinks per day Lifestyle - moderate stress lifestyle and single Exercise - minimal Employer - homemaker Job Description - Illicit Drug Use - denies use of street drugs Sexual Activity - single sexual partner and single Residence - Lives with FO Place of - [place], [place] Spouse-Sig Other Name - Rod Leonard Spouse-Sig Other Occupation - Family owned [employer] Spouse-Sig Other Phone No - No phone Children Name(s) - Aminah, Hailey, Dmitriy, Karime Larios ('14) GUILLERMO, Maya, Jeffrey, Yessy Bustos PRIOR DELIVERY HISTORY DEL DATE GEST LAB WT LB WT OZ TYPE ANES LABOR TX Jan 00 8 0 0 0 Vag Epidural No November 02 7 0 0 0 Vag None No May 08 10 0 0 0 Ectop General No Aug 97 38 3 6 7 Vag None No Apr 18 39 5 7 0 Vag None No Apr 39 3 7 4 Vag None No Jan 14 40 8 7 0 Vag None No Dec 04 38 3 6 2 Vag None No Jul 04 37 2 6 12 Vag None yes Aug 12 38 2 6 14 Vag None No ANTEPARTUM FLOW CHART VISIT GE RTC FU F F MD U U DATE WK MD WKS HT PN HR M SS BP ED WT MD GL D EF ST __ ____ ___ __ __ ___ __ __ __ ___ __ __ __ ___ __ 20 November JMW 1 36 B + + 138/90 0 195 - - 4 50 -2 04 November 34 CM 2 34 B + + 134/84 0 191 tr ne Oct 32 CM 2 32 B + + 146/70 192 - - 11 Sep 26 CM 4 26 U+ + 124/64 0 182 - - 17 Jun 16 JM 4 15 - on O 120/70 0 179 tr - cl ANTEPARTUM NOTE(S): Nov 20 2020: GBS and LARC Nov 04 2020: Oct 21 2020: Sep 11 2020: Jun 19 2020: daily spotting/bleeding COMPREHENSIVE ANTEPARTUM NOTE(S): Nov 20 2020: Esther is here for a PNV at 36 weeks. Good FM. No edema present at this time. GBS today, consent signed. LARC reviewed and declined. Ctx's occasionally, back pain and pelvic pressure. MK Nov 04 2020: Esther is here for PNV. Expressing concern about breech position. Delivered last baby at 36 weeks and she is currently 34/3. No other compliants. Feeling well with good FM. Urine tr/neg. LSS Nov 04 2020: 34/3w. Breech again today. AMA - plan for growth next visit with BPP. Will need weekly testing after with NSTs. Poor care. Hx of 36w SROM. F/u 2w. CM Oct 21 2020: Esther reporting concern w/decreased FM for the past month. Advised to call SAME DAY with any concerns re: FM. Reporting intermittent pains upper abdomen and low abdominal pressure. Also leaking fluid, not sure if urine or amniotic fluid for the past 3 days -- Advised to call SAME DAY w/any concern of leaking fluid. Her kids have been sick Dx'd w/Rhinovirus Esther has been coughing and wondering i Oct 21 2020: Esther's second BP taken after NST 120/74 lt arm large cuff. NST non reactive though this nurse w her 40 min. Baby active and difficult to maintain tracing. BPP done. GABI. Oct 21 2020: 32/3w visit. Concerned about FM x1 month. Discussed kick counts. NST nonreactive, BPP 02/08. Overall 02/10. Reports concern for leaking. Neg nitrazine and neg ferning. MOHSEN wnl. Likely discharge and urine leaking with coughing. Precautions reviewed. AMA - growth at 36w and NSTs. Poor care. F/u 2w. CM Sep 11 2020: Milana given glucola here today and drawn this visit. Last visit here 06/19/20. Sep 11 2020: 26/5w visit. AMA - continue ASA. Plan for 36w growth and NSTs. Poor care - emphasized need for routine visits. Glucola drawn today. Anatomy wnl. F/u 4w. CM Jun 19 2020: TELEHEALTH NOB VISIT, 30 MINUTE DURATION. Esther is a 39 year old A2 E1 L8 with an CEZAR of 12/13/2020, current GA is 14 w 5 d. She resides with /[facility], oRd Leonard, and their 8 children. Her last child, a girl, was delivered by on 02/25/2018 at 36 w 6 d following SROM and 5 hours of labor at [facility]; no epidural, intact perineum, and no treatment for labor. She states that she had Jun 19 2020: Concerned with daily spotting. Has never had any bleeding in before. Ok to get u/s per Dr Adalid El. Jun 19 2020: 15wk, vaginal bleeding when going to bathroom when whiping. U/s today with no clear pathology, vaginal exam wnl. Continue at home monitoring. NIPT neg, Carrier screening Neg. Anatomy u/s at next visit. [place] May 09 2020: Esther is here for missed menses. LMP 8-28-20. Home and Office UPTs were +. Makes her 10 weeks 0 days. . Flat affect. Was in ER this past weekend with spotting and cramping. Was told it was a cyst on her ovary. No c/o of N/V. Last PAP was 2-16-18 and WNL. Mother passed from colon cancer and strong advised her to have a colonoscopy. Pregnanacy info packet given with vitami REVIEW OF SYSTEMS: GENERAL - Denies fever, or chills SKIN - Denies rash, new skin lesions, or change in moles EYES - Denies blurred vision, or change in visual acuity EARS - Denies ear pain, or difficulty hearing NOSE - Denies nasal congestion, discharge, or bleeding MOUTH - Denies sore throat, or difficulty swallowing NECK - Denies pain or swelling RESPIRATORY - Denies shortness of breath, cough, wheezing CARDIOVASCULAR - Denies palpitations, chest pain, orthopnea, PND, peripheral edema, syncope or claudication GASTROINTESTINAL - Denies nausea, vomiting, diarrhea, constipation, Denies abdominal pain, melena and or bright red blood GENITOURINARY - Denies dysuria, frequency of urination, urgency, or hesitancy MUSCULOSKELETAL - Denies joint or muscle pain, or back pain NEUROLOGICAL - Denies localized numbness, weakness, or tingling PSYCHIATRIC - Denies depression, anxiety, substance abuse or suicide attempts ENDOCRINE - Denies heat or cold intolerance, weight loss or gain, increasing thirst HEMATO-IMMUNOLOGIC - Denies easy bruising, bleeding, oral ulcerations or recurrent infections GENETICS SCREENING: Age 35+ years: Yes Thalassemia: No Neural Tube Defect: No Down Syndrome: No SHAKEEL-SACHS: No Sickle Cell Disease: No Hemophilia: No Musc. Dystrophy: No Cystic Fibrosis: No Christian Chorea: No Mental Retardation: No Fragile X: No Other genetic: No Other defects: No SABs/still births: No Drugs since LMP: Yes, aspirin Comments: Sister in law- DeGeorge Syndrome INFECTION HISTORY: High risk AIDS: No High risk Hepatitis: No Exposed to TB: No Exposed to Herpes: No Rash/viral illness since LMP: No History of STD: No MENSTRUAL HISTORY: *Menses Amount/Duration: 4 daysMenses Regularity: RegularMenarche (Age Onset): 11* PAST SUMMARY: PARITY: 1. Total Pregnancies............ 12 2. Full Term Pregnancies........ 8 3. Premature.................... 0 4. Abortions - Induced.......... 0 5. Abortions - Spontaneous...... 2 6. Ectopics..................... 1 7. Multiple Births.............. 0 8. Living Children.............. 8 PAST #1: Date of :.................. [birth year] Gestation Weeks:................ 38 Length of labor(hours):......... 3 Sex:............................ F Weight-lbs:............... 6 Weight-oz:................ 7 Type of Delivery:............... Vag Type of Anesthesia:............. None Place of Delivery:.............. [facility] Treatment of Labor?:.... No Comment: PAST #2: Date of :.................. 04/08/98 Gestation Weeks:................ 39 Length of labor(hours):......... 3 Sex:............................ F Weight-lbs:............... 7 Weight-oz:................ 4 Type of Delivery:............... Vag Type of Anesthesia:............. None Place of Delivery:.............. [facility] Treatment of Labor?:.... No Comment: PAST #3: Date of :.................. 01/02/00 Gestation Weeks:................ 8 Length of labor(hours):......... 0 Sex:............................ UNKNOWN Weight-lbs:............... 0 Weight-oz:................ 0 Type of Delivery:............... Vag Type of Anesthesia:............. Epidural Place of Delivery:.............. [facility] Treatment of Labor?:.... No Comment: MISSCARRIAGE PAST #4: Date of :.................. 07/22/00 Gestation Weeks:................ 37 Length of labor(hours):......... 2 Sex:............................ M Weight-lbs:............... 6 Weight-oz:................ 12 Type of Delivery:............... Vag Type of Anesthesia:............. None Place of Delivery:.............. [facility] Treatment of Labor?:.... yes Comment: INDUCTION, GPB+ PAST #5: Date of :.................. 11/01/01 Gestation Weeks:................ 7 Length of labor(hours):......... 0 Sex:............................ UNKNOWN Weight-lbs:............... 0 Weight-oz:................ 0 Type of Delivery:............... Vag Type of Anesthesia:............. None Place of Delivery:.............. [facility] Treatment of Labor?:.... No Comment: MISCARRIAGE PAST #6: Date of :.................. 12/14/02 Gestation Weeks:................ 38 Length of labor(hours):......... 3 Sex:............................ F Weight-lbs:............... 6 Weight-oz:................ 2 Type of Delivery:............... Vag Type of Anesthesia:............. None Place of Delivery:.............. [facility] Treatment of Labor?:.... No Comment: NURSE DELIVERED BABY PAST #7: Date of :.................. 05/04/05 Gestation Weeks:................ 10 Length of labor(hours):......... 0 Sex:............................ UNKNOWN Weight-lbs:............... 0 Weight-oz:................ 0 Type of Delivery:............... Ectopic Type of Anesthesia:............. General Place of Delivery:.............. [facility] Treatment of Labor?:.... No Comment: PAST #8: Date of :.................. 08/27/08 Gestation Weeks:................ 38 Length of labor(hours):......... 2 Sex:............................ F Weight-lbs:............... 6 Weight-oz:................ 14 Type of Delivery:............... Vag Type of Anesthesia:............. None Place of Delivery:.............. [facility] Treatment of Labor?:.... No Comment: PAST #9: Date of :.................. 01/09/14 Gestation Weeks:................ 40 Length of labor(hours):......... 8 Sex:............................ F Weight-lbs:............... 7 Weight-oz:................ 0 Type of Delivery:............... Vag Type of Anesthesia:............. None Place of Delivery:.............. [facility] Treatment of Labor?:.... No Comment: IOL, RAPID SECOND STAGE PAST #10: Date of :.................. 04/07/16 Gestation Weeks:................ 39 Length of labor(hours):......... 5 Sex:............................ F Weight-lbs:............... 7 Weight-oz:................ 0 Type of Delivery:............... Vag Type of Anesthesia:............. None Place of Delivery:.............. [facility] Treatment of Labor?:.... No Comment: IOL, PAC'S BABY PHYSICAL EXAMINATION General Appearence: 40 yo female in no acute distress Vital Signs: AF, VSS Heart: RRR without rubs or gallops Lungs: CTA x 2 Breasts: deferred Abdomen: gravid Pelvis: Cervix: Presentation: cephalic Station: Fetus: Size: AGA Movement: present Heart: present LAB TEST(S) ORDERED SINCE:03/18/20 05/20/2020 MISCELLANEOUS LAB PROCEDURE 2 05/19/2020 MISCELLANEOUS LAB PROCEDURE 05/15/2020 CYSTIC FIBROSIS PROF 05/14/2020 RPR 05/13/2020 CHLAMYDIA/GC ALBERTO APTIMA 05/11/2020 CULTURE, URINE 05/09/2020 URINE DRUG SCREEN (VISTA) 05/09/2020 RUBELLA IGG 05/09/2020 T AND S-NO CHARGE W/PNP 05/09/2020 HIV - [facility] 05/09/2020 HEPATITIS C ANTIBODY 05/09/2020 HEPATITIS B SURFACE ANTIGEN 05/09/2020 CBC W/DIFF, AUTOMATED 09/11/2020 GLUCOSE CHALLENGE GEST 1H 50G 09/11/2020 CBC-COMPLETE BLOOD CNT NO DIFF == ==== Order Observation Description Value Ref_Range A* Site == ==== GLUCOSE CHALLEN NOTE FERNANDEZ GLUCOSE CHALLEN GLU GEST 50G 1H 114 mg/dL 70-140 ML CBC-COMPLETE BL NOTE FERNANDEZ CBC-COMPLETE BL WBC 12.2 K/mm3 4.4-11.0 H ML CBC-COMPLETE BL RBC 4.07 M/mm3 4.2-5.4 L ML CBC-COMPLETE BL HGB 11.0 g/dL 12.0-15.0 L ML CBC-COMPLETE BL HCT 34.4 37-47 L ML CBC-COMPLETE BL MCV 84.5 fL 81-99 ML CBC-COMPLETE BL MCH 27.0 pg 27.0-32.0 ML CBC-COMPLETE BL MCHC 32.0 g/dL 32-36 ML CBC-COMPLETE BL RDW CV 17.1 11.6-14.6 H ML CBC-COMPLETE BL RDW SD 52.9 fl 35.1-43.9 H ML CBC-COMPLETE BL PLT 334 K/mm3 150-450 ML CBC-COMPLETE BL MPV 10.4 fl 6.2-12.0 ML MISCELLANEOUS L NOTE FERNANDEZ MISCELLANEOUS L MISC LAB TEST 2 ML TEST RESULT LIMITS SMN1 Copy Number Analysis Genetic Counselor: Not applicable 02 Specimen Type: 02 Peripheral Blood Ethnicity: 02 Not Provided Indication: 02 Not Provided SMA Results: Note 02 Disease (Gene) Results Interpretation 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 This result reduces, but does not eliminate the risk to be a carrier. Information regarding clinical indication may provide a more detailed interpretation. For ethnic-specific risk revisions with no family history see Information Table. General Comments Note 02 Genetic counseling services are available. To access [employer] [facility] Genetic Counselors please visit [email or web address] or call [phone] ([phone]). Additional Clinical Info Note 02 Spinal muscular atrophy (SMA) is an autosomal recessive neurodegenerative disorder with variable age at onset and severity, characterized by progressive degeneration of the lower motor neurons in the spinal cord and brain stem, leading to muscle weakness, and in its most common form, respiratory failure by age two. Complications of SMA may include poor weight gain, sleep difficulties, pneumonia, scoliosis, and joint deformities. In severely affected individuals, abnormal ultrasound findings may include congenital joint contractures, polyhydramnios, and decreased movement (Barb, PMID:[id number]). Treatment is supportive. Targeted therapies may be available for some individuals. Approximately 94% of affected individuals have 0 copies of the SMN1 gene; in these individuals an increase in the number of copies of the SMN2 gene correlates with reduced disease severity (Parveen, PMID:[id number]). Individuals with one copy of the SMN1 gene are predicted to be carriers of SMA; those with two or more copies have a reduced carrier risk. For individuals with two copies of the SMN1 gene, the presence or absence of the variant c.*3+80T>G correlates with an increased or decreased risk, respectively, of being a silent carrier (2+0) (Alfonzo, PMID [id number]; Jonathan, PMID [id number]). Method/Limitations: Note 02 Spinal muscular atrophy: The copy number of SMN1 exon 7 is assessed relative to internal standard reference genes by quantitative polymerase chain reaction (qPCR). A mathematical algorithm calculates 0, 1, 2 and 3 copies with statistical confidence. When no copies of SMN1 are detected, the primer and probe binding sites are sequenced to rule out variants that could interfere with copy number analysis and SMN2 copy number is assessed by digital droplet PCR analysis relative to an internal standard reference gene. For carrier screening, when two copies of SMN1 are detected, allelic discrimination qPCR targeting c.*3+80TG in SMN1 is performed. Limitations: False positive or false negative results may occur for reasons that include genetic variants, blood transfusions, bone marrow transplantation, somatic or tissue-specific mosaicism, mislabeled samples, or erroneous representation of family relationships. Information Table Note SMA risk reductions for individuals with no family history Disorder (Gene) Reference Sequence Spinal Muscular Atrophy (SMN1) [id number] Population Detection Pre-test Post-test risk of Post-test Rate carrier being a carrier risk of (Copy risk with 2 copies being a number + carrier SNP) POSITIVE NEGATIVE with 3 for the for the copies c.*3+80T>G c.*3+80T>G SNP SNP 90.3% 1 in 72 1 in 34 1 in 375 1 in 4200 [place] Ashkenazi 92.8% 1 in 67 High risk 1 in 918 1 in 5400 Lutheran 93.6% 1 in 59 High risk 1 in 907 1 in 5600 95.0% 1 in 47 1 in 29 1 in 921 1 in 5600 92.6% 1 in 68 1 in 140 1 in 906 1 in 5400 Mixed or For counseling purposes, consider using the Other ethnic ethnic background with the most conservative Background risk estimates. includes carriers who are silent carriers (2+0) and Carriers with a pathogenic variant not detected in this Assay Jonathan, PMID [id number]; Kate, PMID [id number]; Pedro, PMID [id number] Disclaimer: Note 02 This test was developed and its performance characteristics determined by [facility]. It has not been cleared or approved by the Food and Drug Administration. [employer] is a business unit of [facility], a wholly-owned subsidiary of [employer]. [employer]) is a registered service andreina of [employer]. Testing performed at [facility], [address], [place] [address] Suri Yao, PhD, [facility], [employer] Operator This document contains private and confidential information protected by state and federal law. If you have received this document in error, please call SMN1 Copy Number Analysis PDF Director Review Note Darlene Yao, PhD, [facility] TESTING PERFORMED AT [facility]. ORIGINAL REPORT ON FILE IN LAB CONTAINS ADDITIONAL TEST SITE INFORMATION. MISCELLANEOUS L NOTE FER[facility]NDEZ MISCELLANEOUS L [facility] [place] LAB TEST ML TEST RESULT LIMITS [id number] PLUS Core+ESS+SCA Gestation Alexander Fraction 5% Gestational Age > or = 9w: Yes Test Result Negative Transition Advisor Comments This specimen showed an expected representation of chromosome 21, 18 and 13 material. Clinical correlation is suggested. Approved By Yannick Chicas MD, PhD, Director, [employer] Trisomy 21 (Down Syndrome) Negative Trisomy 18 (Monroe Syndrome) Negative Trisomy 13 (Patau Syndrome) Negative Sex Consistent with Female Monosomy X (Bardales Syndrome) Not Detected XYY (Garzon Syndrome) Not Detected XXY (Klinefelter Syndrome) Not Detected XXX (Triple X Syndrome) Not Detected 22q11 deletion (DiGeorge) Not Detected 15q11 deletion (PW Angelman) Not Detected 11q23 deletion (Belinda) Not Detected 8q24 deletion (Lars-Giedion) Not Detected 5p15 deletion (Cri-du-chat) Not Detected 4p16 deletion(Ruelas-Hirschhorn) Not Detected 1p36 deletion syndrome Not Detected Trisomy 16 Not Detected Trisomy 22 Not Detected Negative Predictive Value Note The Negative Predictive Value (NPV) for trisomy 21, 18, and 13 is greater than 99%. The NPV for SCA and ESS cannot be calculated as SCA and ESS are only reported when an abnormality is detected. Positive Predictive Value N/A About the Test The MaterniT(R) 21 PLUS laboratory-developed test (LDT) analyzes circulating cell-free DNA from a maternal blood sample. The test is indicated for use in women with increased risk for chromosomal aneuploidy. Validation data on twin pregnancies is limited and the ability of this test to detect aneuploidy in a triplet has not yet been validated. Test Method Circulating cell-free DNA was purified from the plasma component of maternal blood. The extracted DNA was then converted into a genomic DNA library for aneuploidy analysis of chromosomes 21, 18, and 13 via next generation sequencing.[1] Optional findings based on the test order include sex chromosome aneuploidy (SCA)[2], and enhanced sequencing series (ESS)[3], which will only be reported on as an additional finding when an abnormality is detected. SCA testing includes information on X and Y representation, while ESS testing includes deletions in selected regions (22q, 15q, 11q, 8q, 5p, 4p, 1p) and trisomy of chromosomes 16 and 22. Performance The performance characteristics of the MaterniT(R) 21 PLUS laboratory-developed test (LDT) have been determined in a clinical validation study with women at increased risk for chromosomal aneuploidy.[1],[2],[3],[4] Performance Characteristics Note ! Y-Chromosome ( Sex) ! Accuracy: 99.4% ! ! ! ! Region (associated syndrome) ! Est. Sens# ! Est. Spec ! ! ! ! Trisomy 21 (Down Syndrome) ! 99.1% ! 99.9% ! ! ! ! Trisomy 18 (Monroe Syndrome) ! >99.9% ! 99.6% ! ! ! ! Trisomy 13 (Patau Syndrome) ! 91.7% ! 99.7% ! ! ! ! Sex Chromosome Aneuploidies## ! 96.2% ! 99.7% ! ! ! * As reported in [facility] database [id number] [http://dbsearch.clinicalShotlstome.org/search/ ] # Estimated Sensitivity. Sensitivity estimated across the observed size distribution of each syndrome [per [facility] database nstd37] and across the range of fractions observed in routine clinical NIPT. Actual sensitivity can also be influenced by other factors such as the size of the event, total sequence counts, amplification bias, or sequence bias. ## Alexander gestation only. Limitations of the Test While the results of these tests are highly accurate, discordant results, including inaccurate sex prediction, may occur due to placental, maternal, or mosaicism or neoplasm; vanishing twin; prior maternal organ transplant; or other causes. Sex chromosomal aneuploidies are not reportable for known multiple gestations. These tests are screening tests and not diagnostic; they do not replace the accuracy and precision of diagnosis with CVS or amniocentesis. A patient with a positive test result should be referred for genetic counseling and offered invasive diagnosis for confirmation of test results.[5] A negative result does not ensure an unaffected nor does it exclude the possibility of other chromosomal abnormalities or defects which are not a part of these tests. An uninformative result may be reported, the causes of which may include, but are not limited to, insufficient sequencing coverage, noise or artifacts in the region, amplification or sequencing bias, or insufficient fraction. These tests are not intended to identify pregnancies at risk for neural tube defects or ventral wall defects. Testing for whole chromosome abnormalities (including sex chromosomes) and for subchromosomal abnormalities could lead to the potential discovery of both and maternal genomic abnormalities that could have major, minor, or no, clinical significance. Evaluating the significance of a positive or a non-reportable result may involve both invasive testing and additional studies on the mother. Such investigations may lead to a diagnosis of maternal chromosomal or subchromosomal abnormalities, which on occasion may be associated with benign or malignant maternal neoplasms. These tests may not accurately identify triploidy, balanced rearrangements, or the precise location of subchromosomal duplications or deletions; these may be detected by diagnosis with CVS or amniocentesis. The ability to report results may be impacted by maternal BMI, maternal weight, maternal systemic lupus erythematosus (SLE) and/or by certain pharmaceutical agents such as low molecular weight heparin (for example: Lovenox(R), Xaparin(R), Clexane(R) and Fragmin(R)). The results of this testing, including the benefits and limitations, should be discussed with a qualified healthcare provider. management decisions, including termination of the , should not be based on the results of these tests alone. The healthcare provider is responsible for the use of this information in the management of their patient. Note This test was developed and its performance characteristics determined by [facility]. It has not been cleared or approved by the Food and Drug Administration. This laboratory is certified under the Clinical Laboratory Improvement Amendments (CLIA) as qualified to perform high complexity clinical laboratory testing and accredited by the [employer] [place] [employer] (CAP). If there is future clinical need for adding MaterniT GENOME testing, this specimen will be available until term. [facility] samples will not be retained beyond 60 days. [facility] patients will have to send a new sample for re-sequencing ([facility] Test Code: 629814). References 1. Areli NORIEGA, et al. Maria Eugenia Med. 2012;14(3):296-305. 2. Frances CYR et al. Prenat Diag. 2013;33(6):591-597. 3. Raffaele C, et al. Clin Chem. 2015 Apr;61(4):608-616. 4. Areli NORIEGA, et al. Maria Eugenia Med. 2011;13(11):913-920. 5. ACOG/SMFM Joint Committee Opinion No. 545, Jun 2012. TESTING PERFORMED AT [facility]. ORIGINAL REPORT ON FILE IN LAB CONTAINS ADDITIONAL TEST SITE INFORMATION. CYSTIC FIBROSIS NOTE FERNANDEZ CYSTIC FIBROSIS CF, SCREEN Comment: . LC RESULTS: Negative for 32 mutations analyzed INTERPRETATION: This individual is negative for the mutations analyzed. This negative result may need further interpretation depending on the clinical indication. This result reduces but does not eliminate the risk to be a CF carrier. COMMENTS: The detection rate varies with ethnicity and is listed below. The presence of an undetected mutation in the CF gene cannot be ruled out. In the absence of family history, the remaining risk that a person with a negative result could have at least one CF mutation is listed in the table. If there is a family history of CF, these risk figures do not apply. As detailed information regarding this individual's family history would permit a more accurate assessment of this individual's risk to be a carrier of cystic fibrosis, please contact [facility] at for a revised report. Mutation Detection Detection rates are based on mutation Rates among Ethnic frequencies in patients affected with Groups cystic fibrosis. Among individuals with an atypical or mild presentation (e.g. congenital absence of the vas deferens, pancreatitis) detection rates may vary from those provided here: Carrier risk reduction when no family history Detection Ethnicity Rate Ashkenazi 07/29 to 97% Lutheran 07/28 to 90% (non-) -[place] to 69% 46 to 73% to 55% This interpretation is based on the clinical and family relationship information provided and the current understanding of the molecular genetics of this condition. MUTATIONS ANALYZED: G85E V520F U5983B 2183AA to G R117H G542X T3942L 2184delA R334W S549N 394delTT 2789+5G to A R347H S549R 621+1G to T 3120+1G to A R347P G551D 711+1G to T 3659delC A455E R553X 1078delT 3849+10kbC to T [id number] R560T 1717-1G to A 3876delA ScmpzS386 H1850D 1898+1G to A 3905insT METHODS/LIMITATIONS: DNA is isolated from the sample and tested for the 32 CF mutations on the [employer] ([employer]). Regions of the CFTR gene are amplified enzymatically and subjected to a solution-phase multiplex allele-specific primer extension with subsequent hybridization to a bead array and fluorescence detection. Polymorphisms F508C, I506V and I507V are included in this panel to rule out false positive [id number] homozygotes. Reflex testing of 5T is included in the panel for R117H interpretation. False positive or negative results may occur for reasons that include genetic variants, blood transfusions, bone marrow transplantation, erroneous representation of family relationships or contamination of a sample with maternal cells. REFERENCES: 1. Updates on Carrier Screening for Cystic Fibrosis. (2011) Am J Ob Gynecol 117(4):0143-5957 2. Santosh et al. (2004) Maria Eugenia Med 6:387-91 3. Gladys et al. (2002) Maria Eugenia Med 4:379-391 4. Preconception and carrier screening for cystic fibrosis: (2001)ACOG.ACMG publication Results Released By: Joesph Lozano, Ph.D., Spiral Machine Operator Released By: Joesph Lozano, Ph.D., Director The assay provides information intended to be used for carrier screening in adults of reproductive age, as an aid in screening, and as a confirmatory test for another medically established diagnosis in newborns and children. The test is not indicated for use in diagnostic testing, pre-implantation screening, or for any stand-alone diagnostic purposes without confirmation by another medically established diagnostic product or procedure. Performed at: [facility] [place], [place] [id number] Transition Advisor: Rosa Platt [facility], Phone: [phone] RPR NOTE FERNANDEZ RPR RPR NONREACTIVE NONREACTIVE ML CULTURE, URINE NOTE FERNANDEZ Reason for Type AND Screen/Red Cells: Surgery? N [facility]~[address] [place], [address]~ T AND BLOOD TYPE GEL A POSITIVE N ML T AND AB SCREEN GEL NEGATIVE N ML HEPATITIS C ANT NOTE FERNANDEZ HEPATITIS C ANT HEPATITIS C AB Non-Reactive Nonreactive ML Non Reactive: < 0.8 Equivocal: >/= 0.8 to < 1.0 Reactive: >/= 1.0 The CDC recommends that a reactive/equivocal HCV antibody result be followed up by the HCV Nucleic Acid Amplification test (082970) HEPATITIS B BECKA NOTE FERNANDEZ HEPATITIS B BECKA HEPB SURFACE AG Non-Reactive Nonreactive ML HIV - [facility] NOTE FERNANDEZ HIV - [facility] HIV - [facility] Non-Reactive Nonreactive ML RUBELLA IGG NOTE FERNANDEZ RUBELLA IGG RUBELLA IGG Reactive Nonreactive ML Antibody Results Interpretation of Immune Status Non Reactive Presumed Non-Immune Equivocal Equivocal Reactive Presumed Immune CBC W/DIFF, AUT NOTE FERNANDEZ CBC W/DIFF, AUT WBC 7.3 K/mm3 4.4-11.0 ML CBC W/DIFF, AUT RBC 4.55 M/mm3 4.2-5.4 ML CBC W/DIFF, AUT HGB 11.9 g/dL 12.0-15.0 L ML CBC W/DIFF, AUT HCT 38.6 % 37-47 ML CBC W/DIFF, AUT MCV 84.8 fL 81-99 ML CBC W/DIFF, AUT MCH 26.2 pg 27.0-32.0 L ML CBC W/DIFF, AUT MCHC 30.8 g/dL 32-36 L ML CBC W/DIFF, AUT RDW CV 17.9 % 11.6-14.6 H ML CBC W/DIFF, AUT RDW SD 55.1 fl 35.1-43.9 H ML CBC W/DIFF, AUT PLT 349 K/mm3 150-450 ML CBC W/DIFF, AUT MPV 11.1 fl 6.2-12.0 ML CBC W/DIFF, AUT NEUT% 70.6 % 47-70 H ML CBC W/DIFF, AUT LY% 20.3 % 19-41 ML CBC W/DIFF, AUT MONO% 6.5 % 0-10 ML CBC W/DIFF, AUT EO% 1.6 % 0-5 ML CBC W/DIFF, AUT BASO% 0.7 % 0-1 ML CBC W/DIFF, AUT IM GRAN % 0.300 % 0.0-0.9 ML IG% - Immature Granulocytes (promyelocytes, myelocytes and metamyelocytes) > 1% indicates that a LEFT SHIFT is Present. CBC W/DIFF, AUT ABSOLUTE NEUT 5.2 X10 3/uL 2.0-7.7 ML CBC W/DIFF, AUT ABSOLUTE LYMPH 1.49 X10 3/uL 0.83-4.51 ML CBC W/DIFF, AUT NRBC, FLAGGED 0 % 0-5 ML URINE DRUG SCRE NOTE FERNANDEZ URINE DRUG SCRE TO BE CONFIRMED ML CONFIRMATORY TESTING FOR ALL POSITIVE URINE DRUG SCREEN RESULTS WILL ONLY BE SENT OUT UPON PHYSICIAN ORDER. VISTA Urine Drug Screen methods provide only preliminary analytical test results. A more specific alternate chemical method must be used in order to obtain a confirmed analytical result. Gas chromatography/mass spectrometery (GC/MS) is the preferred confirmatory method. Clinical consideration and professional judgement should be applied to any drug of abuse test result, particularly when preliminary positive results are used. URINE TCA TESTING MUST BE ORDERED SEPARATELY. USE TEST MNEMONIC: [facility] CHLAMYDIA/GC NA NOTE FERNANDEZ CHLAMYDIA/GC NA CHLAMY,NUC ACID Negative Negative LC CHLAMYDIA/GC NA GC BY NUC ACID Negative Negative LC Performed at: =[facility] [id number] Transition Advisor: Kacie Guerra MD, Phone: [phone] Urine Culture Culture exhibits no growth. Assessment & Plan (1) 37 weeks gestation of : (2) Breech presentation of fetus: QUALIFIERS: Fetus number: single or unspecified fetus Qualified Code(s): O32.1XX0 - Maternal care for breech presentation, not applicable or unspecified PLAN: US confirms breech presentation Advised section - reviewed procedural r/b/i/a. Consents reviewed and s igned. Patient given opportunity to ask questions and questions answered to her satisfaction.
[2020-11-22] MEDS: Acetaminophen 500 MG Tablet 1000 MG PO ×4 (02:19→22:48)
[2020-11-22 02:28] LABS: Group B Strep DNA By PCR Negative (Negative); Internal Control PASS; Probe Check PASS; Specimen Processing Control PASS
[2020-11-22] MEDS: Sodium Citrate/Citric Acid 30 ML UDC PO (02:32)
[2020-11-22] MEDS: Cefazolin 2 GM in 0.9% Normal Saline 100 ML IV (02:55)
[2020-11-22] MEDS: Oxytocin 30 units/NS 500 ml 30 UNITS/500 ML IV.SOLN 167 UNITS IV (03:45)
--- NOTE | 2020-11-22 03:45 | OP.PCM_ITS ---
Assessment & Plan (1) Breech presentation of fetus: QUALIFIERS: Fetus number: single or unspecified fetus Qualified Code(s): O32.1XX0 - Maternal care for breech presentation, not applicable or unspecified (2) Delivery by section: Maternal Data Information CEZAR Calculator Estimated Delivery Date Method Current WG Current Estimate 12/13/20 Manual 37w 0d Details Operative Information Date of Procedure: 11/22/20 Pre-Operative Diagnosis: 37 weeks gestation, breech presentation Post-Operative Diagnosis: 37 weeks gestation, breech presentation Indications for : Breech Indications Narrative: 40-year-old 12 para 7-1-0-3 admitted at 37 weeks gestational age with premature rupture of membranes and breech presentation. She was advised to proceed with section. Following review of indications, risks, benefits patient agreed to proceed. Classification: REINA Procedure Type: low transverse advertising agency manager #1: Opal Rivera Type of Anesthesia: Spinal Anesthesiologist: Linn Pennington Special Medications: Betadine vaginal prep Antibiotic Given: Ancef 2 grams IV x1 Drain: Johnson to straight drain Estimated Blood Loss: 500 ml Fluids Replaced: 1000 ml Findings Description of Procedure: The patient was taken to the operating room and spinal analgesia was administered. She is placed in a dorsal supine position with left lateral tilt. The perineum and abdomen were prepped and draped in sterile fashion. And the spinal was found to be adequate. A Pfannenstiel incision was made using a scalpel and brought down to incise the subcutaneous tissue and rectus fascia at the midline. Subcutaneous tissue was bluntly dissected off the fascia laterally. The fascial incision was dissected laterally and cephalad using curved Retana scissors. The superior leaflet of the rectus fascia was grasped using Adriane clamps and bluntly dissected and sharply dissected from the underlying rectus muscle. In a similar fashion the inferior rectus fascia was dissected from the underlying muscle. The rectus muscles were bluntly at the midline. The peritoneum was identified and entered [sharply]. The bladder blade was placed into the abdomen and the vesicouterine peritoneal fold identified. The fold was incised and a bladder flap created. Bladder blade was then repositioned to the abdomen. A low transverse hysterotomy was made using the [Metzenbaum scissors] to level of the membranes. The hysterotomy was extended bluntly cephalad and caudad. The membranes were then ruptured revealing clear fluid. The breech was elevated and brought to the level of the hysterotomy. The was delivered to the level of the shoulders using gentle bidirectional rotation in the arms and had subsequently delivered without additional maneuvers. The infant was vigorous and a loose nuchal cord was reduced. The cord was doubly clamped and cut after approximately 60 seconds. The was passed to awaiting [nursery personnel]. The placenta was [expressed] from the uterus and appeared intact on inspection. The uterus was cleared of debris. The hysterotomy was then repaired using 0 Vicryl running lock suture. The anterior cul-de-sac was cleared of debris. The peritoneum and rectus muscles were reapproximated using 2-0 Vicryl running suture. The rectus fascia was closed using 0 Vicryl running suture. The subcutaneous tissue was sponge irrigated and small capillary bleeding controlled using the Bovie device. The subcutaneous tissue was reapproximated using 2-0 Vicryl. The skin was closed using 4-0 Monocryl subcuticularly by the PROVIDER RELATIONS REPRESENTATIVE under my supervision. A Mepilex occlusive dressing was placed over the incision. The fundus was firm. The patient was then transferred to the recovery room without complication. Sponge, instrument, and needle counts were correct ?2. Presentation: Positive for Vertex Amniotic Membrane Rupture Type: Spontaneous Time of Membrane Ruptured: 18 Amniotic Fluid Description: Clear Placental Delivery Description: Expressed Placenta Disposition: [facility] Cord Vessel Description: 3 Vessels Cord Entanglement: Around neck x 1, loose Nuchal Cord Compression: Without compression A Gender: Female (1 minute): 9 (5 minute): 9 Delayed Cord Clamping: Yes Admit VTE Documentation VTE Present on Admission: No VTE Mechan Device Prophylaxis: SCD's VTE Pharm Prophylaxis Ordered: Yes
--- NOTE | 2020-11-22 04:04 | DS.PCM_ITS ---
Providers Date of Admission: 11/22/20 Primary Care Physician: No Primary Care Phys Reason For Visit: C SECTION Diagnosis Discharge Diagnosis (1) Breech presentation of fetus: Status: Acute Code(s): O32.1XX0 - Maternal care for breech presentation, not applicable or unspecified Qualifiers: Fetus number: single or unspecified fetus Qualified Code(s): O32.1XX0 - Maternal care for breech presentation, not applicable or unspecified (2) Delivery by section: Status: Acute Medications at Discharge Home Medications Prenatabs FA 1 tab PO DAILY #30 tablet 01/11/14 aspirin 81 mg PO DAILY 11/22/20 ABG / Lab / Microbiology Data Result Diagrams: 11/22/20 01:45 Laboratory: Laboratory Results - last 24 hr 11/22/20 11/22/20 11/22/20 01:12 01:12 01:45 WBC 12.5 H RBC 4.34 Hgb 10.9 L Hct 35.0 L MCV 80.6 L MCH 25.1 L MCHC 31.1 L RDW Std Deviation 49.3 H RDW Coeff of Jaylene 17.2 H Plt Count 287 MPV 10.6 Immature Gran % (Auto) 0.900 Neut % (Auto) 74.4 H Lymph % (Auto) 16.6 L Crowley % (Auto) 7.1 Eos % (Auto) 0.7 Baso % (Auto) 0.3 Absolute Neuts (auto) 9.3 H Absolute Lymphs (auto) 2.08 Nucleated RBC % 0 Vag Amniotic Fld Detect POSITIVE H Group B Strep DNA Negative Specimen Comment Not Reportable Blood Type Antibody Screen 11/22/20 01:45 WBC RBC Hgb Hct MCV MCH MCHC RDW Std Deviation RDW Coeff of Jaylene Plt Count MPV Immature Gran % (Auto) Neut % (Auto) Lymph % (Auto) Crowley % (Auto) Eos % (Auto) Baso % (Auto) Absolute Neuts (auto) Absolute Lymphs (auto) Nucleated RBC % Vag Amniotic Fld Detect Group B Strep DNA Specimen Comment Blood Type A POSITIVE Antibody Screen NEGATIVE Microbiology: Microbiology 11/22/20 01:45 SARS-CoV-2 Antigen (Rapid) - Final Mucosa - Nasopharyngeal Microbiology 11/22/20 01:45 Mucosa - Nasopharyngeal SARS-CoV-2 Antigen (Rapid) - Final D/C Instructions Discharge Diet: No restrictions Discharge Activity: Return to Normal Activity, May Shower and May Take a Tub Bath May resume sexual activity in: 4-6 weeks Lifting Restricted to (Lbs): 20 Call your doctor if you observe: Fever of 101 or Higher, Using more than one pad per hour, Shortness of breath, Chest pain, Calf discomfort and Uncontrolled pain Please Follow Up With: cade shah When: 3 weeks for telehealth follow up 6 weeks for visit Discharge Plan Admission Admit Date/Time: 11/22/20 01:35 Attending Provider: Aleena Betnon Primary Care Provider: Care Physician,Jessy Primary Discharge Orders/Prescriptions Prescriptions: No Action Prenatabs FA 1 TABLET tablet 1 tab PO DAILY Qty: 30 RF: 3 aspirin 81 mg Tablet,Chewable 81 mg PO DAILY RF: 0
[2020-11-22] MEDS: Methylergonovine 0.2 MG/ML Ampul IM (04:13)
[2020-11-22] MEDS: Carboprost Tromethamine 250 MCG/ML Ampul IM (04:35)
[2020-11-22] MEDS: Lactated Ringers 500 ML 999 ML IV ×2 (04:37→11:50)
[2020-11-22] MEDS: miSOPROStol 200 MCG Tablet 800 MCG RC (04:44)
[2020-11-22] MEDS: 0.9% Saline Lock 10 ML Syringe IV ×4 (05:05→19:13)
[2020-11-22 05:38] LABS: Absolute Lymphocyte Count 2.24 X10^3/uL (0.83-4.51); Absolute Neutrophil Count 11.3 X10^3/uL (2.0-7.7); Basophil# 0.05 X10^3/uL; Basophil% 0.3 % (0-1); Eosinophil# 0.09 X10^3/uL; Eosinophils% 0.6 % (0-5); Hematocrit 32.6 % (37-47); Hemoglobin 9.5 g/dL (12.0-15.0); Lymphocyte # 2.24 X10^3/ul (0.83-4.51); Lymphocyte % 15.3 % (19-41); Mean Corp Hgb Conc 29.1 g/dL (32-36); Mean Corpuscular Hgb 24.9 pg (27.0-32.0); Mean Corpuscular Volume 85.3 fL (81-99); Monocyte# 0.93 X10^3/uL; Monocyte% 6.3 % (0-10); NRBC Flagged by Analyzer 0 % (0-5); Neutrophil # 11.27 X10^3/uL (2.7-7.7); Neutrophil % 76.8 % (47-70); Platelet Count 245 K/mm3 (150-450); RBC Distribution Width CV 17.3 % (11.6-14.6); RBC Distribution Width SD 54.5 fl (35.1-43.9); Red Blood Count 3.82 M/mm3 (4.2-5.4); White Blood Count 14.7 K/mm3 (4.4-11.0)
[2020-11-22 06:42] LABS: Prothrombin Time (Protime)PT. 12.8 SECONDS (11.7-14.9)
[2020-11-22 06:48] LABS: Fibrinogen 416 mg/dl (203-444)
[2020-11-22] MEDS: Lactated Ringers 1,000 ML 100 ML IV ×2 (06:55→17:12)
--- NOTE | 2020-11-22 08:03 | NURSING ---
scant amount of bleeding starting to come out of balloon and into tubing. bright red in color.
--- NOTE | 2020-11-22 08:11 | NURSING ---
6 cc total blood volume noted in balloon catheter bag.
--- NOTE | 2020-11-22 08:43 | PCM.PN.BLA ---
Progress Note Summary of Events: Called by RN at approximately 0500h to evaluated patient for increased vaginal bleeding, methergine was already given. On evaluation patient reported feeling tired, denies lightheadedness, dizziness, palpitations, heart racing or shortness of breath. BPs were 70s/40s with HR 80s. Fundus was firm at the umbilicus and there was no active vaginal bleeding however some trickling of blood with fundal massage was present. An intrauterine exam was performed retrieving clots. The lower uterine segment was atonic. Bimanual uterine massage was performed, and hemabate administered. Misoprostol was placed and tranexamic acid ordered as the lower uterine segment again filled with clots and bleeding began to increase. I placed a Bakri ballon with 330cc of normal saline with resolution of hemorrhage. CBC and coags were ordered and stable from prior. EBL 937cc in additional to EBL at delivery. Will maintain Bakri balloon for at least 12 hours and monitor output further.
[2020-11-22] MEDS: Prenatal Vits Tablet 1 TABLET PO (10:18)
[2020-11-22] MEDS: Senna/Docusate Sodium 1 Tablet PO (10:18)
--- NOTE | 2020-11-22 11:35 | PN.OBGYN_ITS ---
Subjective Subjective Reports fatigue. Denies lightheadedness, dizziness , chest pain, shortness of breath, palpitations or heart racing. Objective Data Objective Data Vital Signs: Vital Signs Temp Pulse Resp BP Pulse Ox 97.1 F L 117 H 22 H 109/66 99 11/22/20 10:00 11/22/20 10:00 11/22/20 10:00 11/22/20 10:00 11/22/20 10:00 Oxygen Delivery Method Room Air Weight: 87.1 kg Body Mass Index (BMI) 35.1 Intake & Output: Intake and Output for Last 24 Hours 11/20/20 11/21/20 11/22/20 23:59 23:59 23:59 Intake Total 2619 / 2619 Output Total 365 / 365 Balance 2254 / 2254 Lab / Micro Data Result Diagrams: 11/22/20 05:22 Labs: Laboratory Results - last 24 hr 11/22/20 11/22/20 11/22/20 01:12 01:12 01:45 WBC 12.5 H Corrected WBC RBC 4.34 Hgb 10.9 L Hct 35.0 L MCV 80.6 L MCH 25.1 L MCHC 31.1 L RDW Std Deviation 49.3 H RDW Coeff of Jaylene 17.2 H Plt Count 287 MPV 10.6 Immature Gran % (Auto) 0.900 Neut % (Auto) 74.4 H Lymph % (Auto) 16.6 L [place] % (Auto) 7.1 Eos % (Auto) 0.7 Baso % (Auto) 0.3 Absolute Neuts (auto) 9.3 H Absolute Lymphs (auto) 2.08 Total Counted Neutrophils % (Manual) Band Neutrophils % Lymphocytes % (Manual) Monocytes % (Manual) Eosinophils % (Manual) Basophils % (Manual) Metamyelocytes % Myelocytes % Promyelocytes % Blast Cells % Plasma Cell % (Manual) Other Cells % Nucleated RBC % 0 Nucleated RBCs/100 WBC Differential Comment Diff Path Review Hypersegmented Neuts Atypical Lymphocytes Reactive Lymphocytes Smudge Cells Toxic Granulation Toxic Vacuolation Dohle Bodies Claudia Rods Platelet Estimate Plt Morphology Comment RBC Morphology Polychromasia Hypochromasia Poikilocytosis Basophilic Stippling Anisocytosis Microcytosis Macrocytosis Spherocytes Sickle Cells Target Cells Tear Drop Cells Ovalocytes Stomatocytes [place] Bodies [place] Cells Bite Cells Crenated Cell Acanthocytes (Spur) Rouleaux Schistocytes PT INR APTT Fibrinogen Vag Amniotic Fld Detect POSITIVE H Group B Strep DNA Negative Specimen Comment Not Reportable Blood Type Antibody Screen Crossmatch 11/22/20 11/22/20 11/22/20 01:45 01:45 05:01 WBC Cancelled Corrected WBC Cancelled RBC Cancelled Hgb Cancelled Hct Cancelled MCV Cancelled MCH Cancelled MCHC Cancelled RDW Std Deviation Cancelled RDW Coeff of Jaylene Cancelled Plt Count Cancelled MPV Cancelled Immature Gran % (Auto) Cancelled Neut % (Auto) Cancelled Lymph % (Auto) Cancelled [place] % (Auto) Cancelled Eos % (Auto) Cancelled Baso % (Auto) Cancelled Absolute Neuts (auto) Cancelled Absolute Lymphs (auto) Cancelled Total Counted Cancelled Neutrophils % (Manual) Cancelled Band Neutrophils % Cancelled Lymphocytes % (Manual) Cancelled Monocytes % (Manual) Cancelled Eosinophils % (Manual) Cancelled Basophils % (Manual) Cancelled Metamyelocytes % Cancelled Myelocytes % Cancelled Promyelocytes % Cancelled Blast Cells % Cancelled Plasma Cell % (Manual) Cancelled Other Cells % Cancelled Nucleated RBC % Cancelled Nucleated RBCs/100 WBC Cancelled Differential Comment Cancelled Diff Path Review Cancelled Hypersegmented Neuts Cancelled Atypical Lymphocytes Cancelled Reactive Lymphocytes Cancelled Smudge Cells Cancelled Toxic Granulation Cancelled Toxic Vacuolation Cancelled Dohle Bodies Cancelled Claudia Rods Cancelled Platelet Estimate Cancelled Plt Morphology Comment Cancelled RBC Morphology Cancelled Polychromasia Cancelled Hypochromasia Cancelled Poikilocytosis Cancelled Basophilic Stippling Cancelled Anisocytosis Cancelled Microcytosis Cancelled Macrocytosis Cancelled Spherocytes Cancelled Sickle Cells Cancelled Target Cells Cancelled Tear Drop Cells Cancelled Ovalocytes Cancelled Stomatocytes Cancelled [place] Bodies Cancelled [place] Cells Cancelled Bite Cells Cancelled Crenated Cell Cancelled Acanthocytes (Spur) Cancelled Rouleaux Cancelled Schistocytes Cancelled PT INR APTT Fibrinogen Vag Amniotic Fld Detect Group B Strep DNA Specimen Comment Blood Type A POSITIVE Antibody Screen NEGATIVE Crossmatch See Detail 11/22/20 11/22/20 11/22/20 05:01 05:22 06:24 WBC 14.7 H Corrected WBC RBC 3.82 L Hgb 9.5 L Hct 32.6 L MCV 85.3 D MCH 24.9 L MCHC 29.1 L D RDW Std Deviation 54.5 H RDW Coeff of Jaylene 17.3 H Plt Count 245 MPV 11.0 Immature Gran % (Auto) 0.700 Neut % (Auto) 76.8 H Lymph % (Auto) 15.3 L [place] % (Auto) 6.3 Eos % (Auto) 0.6 Baso % (Auto) 0.3 Absolute Neuts (auto) 11.3 H Absolute Lymphs (auto) 2.24 Total Counted Neutrophils % (Manual) Band Neutrophils % Lymphocytes % (Manual) Monocytes % (Manual) Eosinophils % (Manual) Basophils % (Manual) Metamyelocytes % Myelocytes % Promyelocytes % Blast Cells % Plasma Cell % (Manual) Other Cells % Nucleated RBC % 0 Nucleated RBCs/100 WBC Differential Comment Diff Path Review Hypersegmented Neuts Atypical Lymphocytes Reactive Lymphocytes Smudge Cells Toxic Granulation Toxic Vacuolation Dohle Bodies Claudia Rods Platelet Estimate Plt Morphology Comment RBC Morphology Polychromasia Hypochromasia Poikilocytosis Basophilic Stippling Anisocytosis Microcytosis Macrocytosis Spherocytes Sickle Cells Target Cells Tear Drop Cells Ovalocytes Stomatocytes [place] Bodies [place] Cells Bite Cells Crenated Cell Acanthocytes (Spur) Rouleaux Schistocytes PT Cancelled 12.8 INR Cancelled 1.0 APTT Cancelled 22.0 L Fibrinogen Cancelled 416 Vag Amniotic Fld Detect Group B Strep DNA Specimen Comment Blood Type Antibody Screen Crossmatch Micro: Microbiology 11/22/20 01:45 Mucosa - Nasopharyngeal SARS-CoV-2 Antigen (Rapid) - Final Physical Exam Narrative Const alert, oriented x3 and no apparent distress Resp normal respiratory effort and normal air movement Cardio regular rate and regular rhythm Cardio Narrative: Pulse 98, regular on my examination Extremity no calf tenderness and no pedal edema Assessment & Plan (1) hemorrhage: PLAN: s/p PLTCS for breech presentation EBL total approx 1500mL, bleeding resolved, Bakri balloon in situ with minimal outpuat 20cc Urine output low, urine concentrated, give bolus now Tachycardia resolving Follow up CBC later today
[2020-11-22] MEDS: Heparin Injection (Vial) 5,000 UNIT/ML VIAL 5000 UNIT SC (12:16)
--- NOTE | 2020-11-22 12:51 | CPS ---
patient nursing baby. i explained the incentive to her and she will work on it when done.
[2020-11-22] MEDS: Ketorolac 30 MG/ML Syringe IV ×2 (13:37→19:13)
--- NOTE | 2020-11-22 14:00 | NURSING ---
Ambulated after 10 hours due to pt's continued drowsiness after and PPH.
--- NOTE | 2020-11-22 19:15 | NURSING ---
Removed 60 mLs of fluid from balloon tamponade at 1800 - pt had no extra bleeding - fundus firm, midline, at umbilicus - completed orthostatic vitals per MD order (see chart) - removed another 60 mLs of fluid from balloon tamponade at 1900 - lightly tugged at it and it did not fall out - fundus firm, midline, and at umbilicus - no extra bleeding.
--- NOTE | 2020-11-22 20:18 | NURSING ---
This nurse talked to Dr. Susu Koch about pt bakri balloon, Dr. Chinchilla stated to take another 60cc out of balloon myron and monitor for an hour, if pt bleeding remains low then balloon can be taken out completely. Dr. Susu Koch ordered a CBC for this pt myron.
--- NOTE | 2020-11-22 20:45 | NURSING ---
This nurse took 60cc out of bakri balloon, balloon remained in place, bleeding remained minimal
[2020-11-22 20:48] LABS: Hematocrit 17.2 % (37-47); Mean Corpuscular Hgb 25.9 pg (27.0-32.0); Mean Corpuscular Volume 81.1 fL (81-99); Mean Platelet Vol. 10.4 fl (6.2-12.0); POSITIVE COUNT YES; Platelet Count 232 K/mm3 (150-450); RBC Distribution Width CV 17.2 % (11.6-14.6); RBC Distribution Width SD 50.5 fl (35.1-43.9); Red Blood Count 2.12 M/mm3 (4.2-5.4); White Blood Count 14.3 K/mm3 (4.4-11.0)
[2020-11-22 21:29] LABS: Hemoglobin 5.5 g/dL (12.0-15.0)
[2020-11-22] MEDS: DiphenhydrAMINE 50 MG/ML Syringe 25 MG IV (22:25)
[2020-11-22] MEDS: 0.9% Normal Saline 250 ML IV.SOLN. IV (22:35)
--- NOTE | 2020-11-22 23:56 | NURSING ---
Bakri balloon removed at this time, 10 cc in container
[2020-11-23] VITALS (11 sets, daily range): BP systolic 117–147; BP diastolic 58–77; PULSE 73–100; RESP 16–20; TEMP 36.1–36.9; O2SAT 94–97
[2020-11-23] MEDS: Heparin Injection (Vial) 5,000 UNIT/ML VIAL 5000 UNIT SC ×2 (00:25→11:11)
[2020-11-23] MEDS: Ketorolac 30 MG/ML Syringe IV (02:05)
[2020-11-23] MEDS: Acetaminophen 500 MG Tablet 1000 MG PO ×2 (05:23→11:11)
[2020-11-23] MEDS: Ibuprofen 600 MG Tablet PO ×2 (08:19→13:56)
[2020-11-23 09:12] LABS: Hematocrit 22.8 % (37-47); Mean Corp Hgb Conc 30.7 g/dL (32-36); Mean Corpuscular Hgb 25.2 pg (27.0-32.0); Mean Platelet Vol. 10.5 fl (6.2-12.0); Platelet Count 229 K/mm3 (150-450); RBC Distribution Width CV 16.4 % (11.6-14.6); RBC Distribution Width SD 49.1 fl (35.1-43.9); Red Blood Count 2.78 M/mm3 (4.2-5.4); White Blood Count 10.6 K/mm3 (4.4-11.0)
--- NOTE | 2020-11-23 11:09 | PCM.PN.OB ---
Subjective Subjective Out of bed and ambulating. Denies lightheadedness, dizziness, chest pain, palpitations, heart racing. Denies heavy lochia. Pain is controlled. She is passing flatus. Tolerating regular diet. Request discharge today. Objective Data Objective Data Vital Signs: Vital Signs Temp Pulse Resp BP Pulse Ox 97.1 F L 77 20 H 127/70 H 97 11/23/20 08:25 11/23/20 08:25 11/23/20 08:25 11/23/20 08:25 11/23/20 08:25 Oxygen Delivery Method Room Air Weight: 87.1 kg Body Mass Index (BMI) 35.1 Orthostatic Vital Signs Start: 11/22/20 18:30 Freq: q24h Status: Active Protocol: Activity Type Activity Date Activity User E-Sign Co-Sign Detail Recorded Client Recorded Date Recorded By Document 11/22/20 18:00 LW Desktop 11/22/20 18:31 LW 11/22/20 18:00 Orthostatic Vitals Standing -Blood Pressure (90/60-120/80 mm Hg) 120/67 -Extremity Use Right Arm -Pulse Rate (60-100 beats/min) 108 H Sitting -Blood Pressure (90/60-120/80 mm Hg) 118/63 -Extremity Use Right Arm -Pulse Rate (60-100 beats/min) 104 H Lying -Blood Pressure (90/60-120/80 mm Hg) 105/60 -Extremity Use Right Arm -Pulse Rate (60-100 beats/min) 91 Intake & Output: Intake and Output for Last 24 Hours 11/21/20 11/22/20 11/23/20 23:59 23:59 23:59 Intake Total 6519 / 6519 800 / 800 Output Total 1511 / 1511 600 / 600 Balance 5008 / 5008 200 / 200 Lab / Micro Data Result Diagrams: 11/23/20 08:55 Labs: Laboratory Results - last 24 hr 11/22/20 11/22/20 11/23/20 01:45 20:10 08:55 WBC 14.3 H 10.6 RBC 2.12 L 2.78 L Hgb 5.5 L* 7.0 L Hct 17.2 L 22.8 L MCV 81.1 82.0 MCH 25.9 L 25.2 L MCHC 32.0 D 30.7 L RDW Std Deviation 50.5 H 49.1 H RDW Coeff of Jaylene 17.2 H 16.4 H Plt Count 232 229 MPV 10.4 10.5 [address] Review May foll Crossmatch See Detail Micro: Microbiology 11/22/20 01:45 Mucosa - Nasopharyngeal SARS-CoV-2 Antigen (Rapid) - Final Physical Exam Const alert, oriented x3 and no apparent distress Resp normal respiratory effort, normal air movement and clear to auscultation bilaterally Cardio regular rate, regular rhythm, S1 normal heart sound and S2 normal heart sound GI normal to inspection, nondistended, normoactive bowel sounds, soft to palpation, non-tender and non-distended Manual OB Exam: other lochia scant Uterus Palpation: uterus fundus firm Extremity no calf tenderness Assessment & Plan (1) hemorrhage: QUALIFIERS: hemorrhage type: other immediate Qualified Code(s): O72.1 - Other immediate hemorrhage PLAN: s/p 2u prbc (2) Delivery by section: PLAN: Routine postop care Rh+ Breast-feeding (3) Acute blood loss anemia: PLAN: Patient asymptomatic status post 2 units packed RBCs Discussed p.o. iron supplementation versus single dose IV iron prior to discharge Proceed with p.o. iron supplementation We will continue to observe and plan discharge to home early this evening
[2020-11-23] MEDS: Senna/Docusate Sodium 1 Tablet PO (11:10)
[2020-11-23] MEDS: Prenatal Vits Tablet 1 TABLET PO (11:11)
--- NOTE | 2020-11-23 11:14 | DS.PCM_ITS ---
Providers Date of Admission: 11/22/20 Reason For Visit: C SECTION Diagnosis Discharge Diagnosis (1) hemorrhage: Status: Acute Code(s): O72.1 - Other immediate hemorrhage Qualifiers: hemorrhage type: other immediate Qualified Code(s): O72.1 - Other immediate hemorrhage (2) Delivery by section: Status: Acute (3) Acute blood loss anemia: Status: Acute Code(s): D62 - Acute posthemorrhagic anemia Medications at Discharge Home Medications Prenatabs FA 1 tab PO DAILY #30 tablet 01/11/14 ferrous sulfate 325 mg PO BIDCM #60 tab 11/23/20 ibuprofen 600 mg PO Q8H PRN PRN #30 tab 11/23/20 oxycodone 5 - 10 mg PO Q6H PRN PRN 7 Days #10 tab NS 11/23/20 Hospital Course Operations section Procedures Blood transfusion (2 units of packed RBCs) Summary of Care Provided Hospital Course: 40-year-old 12 para 8-0-3-8 presented at 37-5/7 weeks gestational age with premature rupture of membranes and breech presentati on. She underwent primary low-transverse section complicated by hemorrhage with acute blood loss anemia. She received 2 units of packed RBCs. She was discharged to home on postop day #1. ABG / Lab / Microbiology Data Result Diagrams: 11/23/20 08:55 Laboratory: Laboratory Results - last 24 hr 11/22/20 11/22/20 11/23/20 01:45 20:10 08:55 WBC 14.3 H 10.6 RBC 2.12 L 2.78 L Hgb 5.5 L* 7.0 L Hct 17.2 L 22.8 L MCV 81.1 82.0 MCH 25.9 L 25.2 L MCHC 32.0 D 30.7 L RDW Std Deviation 50.5 H 49.1 H RDW Coeff of Jaylene 17.2 H 16.4 H Plt Count 232 229 MPV 10.4 10.5 Diff Path Review May foll Crossmatch See Detail Microbiology: Microbiology 11/22/20 01:45 Mucosa - Nasopharyngeal SARS-CoV-2 Antigen (Rapid) - Final D/C Instructions Discharge Diet: No restrictions Discharge Activity: Return to Normal Activity, May Shower and May Take a Tub Bath May resume sexual activity in: 4-6 weeks Lifting Restricted to (Lbs): 20 Call your doctor if you observe: Fever of 101 or Higher, Using more than one pad per hour, Shortness of breath, Chest pain, Calf discomfort, Uncontrolled pain and - (Persistent or severe headache) Please Follow Up With: Avril El DO When: 2 weeks for post-op check and 6 weeks for visit Meaningful Use Info Meaningful Use Diagnoses (Choose all that apply): None applicable Discharge Plan Admission Admit Date/Time: 11/22/20 01:35 Primary Reason for Your Visit: section Attending Provider: Aleena Benton Primary Care Provider: Care Physician,No Primary Instructions Patient Instructions: Anemia, After a Discharge Orders/Prescriptions Prescriptions: New ferrous sulfate 325 mg (65 mg iron) Tablet 325 mg PO BIDCM Qty: 60 RF: 1 ibuprofen 600 mg Tablet 600 mg PO Q8H PRN PRN (Reason: pain) Qty: 30 RF: 0 oxycodone 5 mg Tablet 5 - 10 mg PO Q6H PRN PRN (Reason: Pain Score 4-10) 7 Days Qty: 10 RF: 0 Continued Prenatabs FA 1 TABLET tablet 1 tab PO DAILY Qty: 30 RF: 3 Discontinued aspirin 81 mg Tablet,Chewable 81 mg PO DAILY RF: 0 Referrals / Follow Up: Care Physician,No Primary [Primary Care Provider] - Disposition Disposition (needs filled in before D/C Order can be placed): Home, self care
[2020-11-23] MEDS: Ferrous Sulfate 325 MG Tablet PO (13:56)
[2020-11-24 13:28] LABS: Pathologist Review Reviewed
== END 2020-11-23 17:00 | disposition home or self-care (01) | DRG 540 ==
LOC: WPOUT 01:37 → WP 01:37
PROVIDERS: Admitting Provider Obstetrics & Gynecology; Visit Provider Obstetrics & Gynecology
DX: O32.1XX0 Maternal care for breech presentation, not applicable or unspecified (principal); O72.1 Other immediate postpartum hemorrhage; O90.81 Anemia of the puerperium; D62 Acute posthemorrhagic anemia; O13.4 Gestational [pregnancy-induced] hypertension without significant proteinuria, complicating childbirth; O42.92 Full-term premature rupture of membranes, unspecified as to length of time between rupture and onset of labor; O69.81X0 Labor and delivery complicated by cord around neck, without compression, not applicable or unspecified; Z20.822 Contact with and (suspected) exposure to COVID-19; O99.334 Smoking (tobacco) complicating childbirth; F17.200 Nicotine dependence, unspecified, uncomplicated; Z36.85 Encounter for antenatal screening for Streptococcus B; Z79.82 Long term (current) use of aspirin; Z79.899 Other long term (current) drug therapy; Z3A.37 37 weeks gestation of pregnancy; Z37.0 Single live birth
CPT/HCPCS: 59025; 59050; 84112; 85025; 85027; 85384; 85610; 85730; 86850; 86900; 86901; 86920; 87081; 87426; 87653; 99218; 99251; J7050; J7120; P9016; A4216; G0378; G0463; J2405

== ENCOUNTER → 2020-12-29 | Outpatient (CLI) | payer MEDICAID, SELFPAY ==
[2020-11-22 01:24] VITALS: BMI 35.1
[2021-01-02 08:54] LABS: HPV APTIMA, High Risk Negative (Negative)
== END | disposition home or self-care (01) ==
LOC: LABSPEC 14:58
PROVIDERS: Visit Provider Obstetrics & Gynecology
DX: Z12.4 Encounter for screening for malignant neoplasm of cervix (principal)
CPT/HCPCS: 87624; 88175; G0145